=== PATIENT | female | born 1960 | race Caucasian/White ===

== ENCOUNTER 2022-07-27 12:21 | Emergency (ER) | payer OTHER, SELFPAY ==
[2022-07-27 12:44] VITALS: BP 137/81; PULSE 98; RESP 20; TEMP 36.1; O2SAT 96
--- NOTE | 2022-07-27 13:04 | ED.ANIMALBIT ---
HPI - Animal Bite General Chief Complaint: Animal Bite Stated Complaint: Dog Bite Lt Side of Face Time Seen by Provider: 07/27/22 13:00 Source: patient Mode of arrival: ambulatory Limitations: no limitations History of Present Illness HPI narrative: [age] year old female presented for complaint of dog bite to the left face and neck 3 days ago. She states she interfered with her dogs and one dog bit her face. Bleeding is controlled. Sites are open to air without any drainage. Endorses tenderness to the sites. She would like tetanus updated. dog up-to-date on vaccinations. Related Data Allergies Allergy/AdvReac Type Severity Reaction Status Date / Time Penicillins AdvReac Mild Hives Verified 07/27/22 13:03 Sulfa (Sulfonamide AdvReac Mild Hives Verified 07/27/22 13:02 Antibiotics) Review of Systems Review of Systems: CONSTITUTIONAL: Denies body aches, fever, chills, or sweats. EYES: Denies visual changes, redness, or discharge. ENT: Denies rhinorrhea, congestion CARDIOVASCULAR: Denies chest pain, palpitations, or edema. RESPIRATORY: Denies cough or dyspnea. GASTROINTESTINAL: Denies abdominal pain, nausea, vomiting, or diarrhea. SKIN: per HPI MUSCULOSKELETAL: Denies back pain, joint pain, or myalgia. NEUROLOGIC: Denies headache, numbness, tingling, or weakness. PMFSH Comments At time of signature, I have reviewed and agree with nursing past medical, surgical, social and family history unless otherwise noted. Please see nursing chart for further information. There is no relevant family history pertinent to the presenting complaint Exam Narrative: GENERAL: Well-appearing EYES: conjunctivae clear, and EOMI. ENT: Mucous membranes moist. Oropharynx without edema, erythema or lesions. NECK: Supple. No lymphadenopathy CHEST: Clear to auscultation. HEART: Regular rate and rhythm. SKIN: Warm, dry. left samaritan and preauricular area with scattered abrasions and approx 2mm diameter open area, 3mm open area to left neck distal to ear lob with mild surrounding erythema, sites are tender with mild swelling; no active drainage/bleeding, no fluctuance or induration NEURO: Alert and oriented x3. Course Course Emergency Course: Patient is aware of diagnosis, understands and agrees to treatment plan. Anticipatory guidance given. Patient agrees to follow-up as directed and is aware of reasons to seek care at the emergency department. Portions of this record may have been created with voice recognition software Level of Care: Express Care Visit Vital Signs Vital signs: Vital Signs Temperature 96.9 F L 07/27/22 12:44 Pulse Rate 98 07/27/22 12:44 Respiratory Rate 20 07/27/22 12:44 Blood Pressure 137/81 07/27/22 12:44 Pulse Oximetry 96 07/27/22 12:44 Oxygen Delivery Room Air 07/27/22 12:44 Temperature 96.9 F L 07/27/22 12:44 Pulse Rate 98 07/27/22 12:44 Respiratory Rate 20 07/27/22 12:44 Blood Pressure 137/81 07/27/22 12:44 Pulse Oximetry 96 07/27/22 12:44 Oxygen Delivery Room Air 07/27/22 12:44 Reviewed MDM - Animal Bite MDM Narrative Medical decision making narrative: Animal bite occurred 3 days ago. Sites are clean. PCN allergy. Will send Rx doxy and metronidazole. Advised supportive measures and signs/symptoms to go to the ER. Pt is appropriate for outpt treatment and f/u. Differential Diagnosis Differential diagnosis: Likely dog bite Discharge Plan Discharge Clinical Impression: Dog bite Patient Disposition: Home, Self-Care Condition: Stable Instructions: Antibiotic Form, Animal Bite (ED) Additional Instructions: Keep the area clean and dry - cleanse with warm water and mild soap and allow to fully dry. Ok to apply neosporin to the site Keep it open to air (no bandages) Take antibiotic as directed Watch for worsening symptoms including pain, redness, swelling, streaking, pus/drainage, fever. Go to the ER with any of these symptoms or
[2022-07-27] MEDS: TETANUS,DIPHTHERIA,AC PERTUSSIS ADULT (0.5 ML) BOOSTRIX IM (13:11)
== END 2022-07-27 13:12 | disposition home or self-care (01) ==
PROVIDERS: Emergency Provider Nurse Practitioner Family; PCP Family Medicine
DX: S01.85XA Open bite of other part of head, initial encounter (principal); S11.95XA Open bite of unspecified part of neck, initial encounter; W54.0XXA Bitten by dog, initial encounter; Z23 Encounter for immunization; E78.00 Pure hypercholesterolemia, unspecified; K21.9 Gastro-esophageal reflux disease without esophagitis; Z85.3 Personal history of malignant neoplasm of breast; Z90.11 Acquired absence of right breast and nipple
CPT/HCPCS: 90471; 90715; 99213; G0463

== ENCOUNTER 2022-12-05 13:59 | Emergency (ER) | payer OTHER, SELFPAY ==
--- NOTE | ~2022-12-05 | CT_ITS ---
EXAMINATION: CT facial bones wo con DATE: 12/05/2022 15:31 INDICATION: Dog bite to face. TECHNIQUE: Computed tomography (CT) of the facial bones and maxillofacial region was performed withou t intravenous contrast. Automated exposure control and iterative reconstruction technique were employ ed. The dose-length product was 392.44 mGy-cm. COMPARISON: None. FINDINGS: There is fat stranding in the right cheek and lower face with foci of soft tissue gas and l acerations. No radiopaque foreign body. No fracture. There is moderate cervical spondylosis. IMPRESSION: 1. Right face lacerations and inflammation. No fracture or radiopaque foreign body. Reviewed, dictated and finalized at location A. IMPRESSION: 1. Right face lacerations and inflammation. No fracture or radiopaque foreign b lawrence.
[2022-12-05 14:02] VITALS: BP 151/88; PULSE 119; RESP 20; TEMP 36.2; O2SAT 100
--- NOTE | 2022-12-05 15:29 | ED.ANIMALBIT ---
HPI - Animal Bite General Chief Complaint: Animal Bite <Jace Engel PA-C - Last Filed: 12/05/22 18:46> Stated Complaint: dog bite <Jace Engel PA-C - Last Filed: 12/05/22 18:46> Time Seen by Provider: 12/05/22 14:57 <Jace Engel PA-C - Last Filed: 12/05/22 18:46> Source: patient <DAIN Collins Last Filed: 12/05/22 18:46> Mode of arrival: ambulatory <DAIN Collins Last Filed: 12/05/22 18:46> Limitations: no limitations <DAIN Collins Last Filed: 12/05/22 18:46> History of Present Illness HPI narrative: This is a 62-year-old female presents the ED with chief complaint of a dog bite occurring at about 1300 today. She states that she was locked out of her house so she went to her neighbor's yard and the neighbors pitbull attacked her. The dog is not very well-known to the patient. She is unsure about dog vaccination status. She states that the dog jumped up and bit her in the face on the right side. She now reports pain and lacerations to the right side of the face. Otherwise no complaints or further site of injury. Tetanus updated last year <Jace Engel PA-C - Last Filed: 12/05/22 18:46> Related Data Home Medications: Home Medications Medication Instructions Recorded Confirmed atorvastatin 10 mg tablet 10 mg PO DAILY 07/27/22 07/27/22 duloxetine 60 mg capsule,delayed 60 mg PO BID 07/27/22 07/27/22 release pantoprazole 40 mg tablet,delayed 40 mg PO DAILY 07/27/22 07/27/22 release <DAIN Collins Last Filed: 12/05/22 18:46> Allergies/Adverse Reactions: Allergies Allergy/AdvReac Type Severity Reaction Status Date / Time Penicillins AdvReac Mild Hives Verified 12/05/22 17:25 Sulfa (Sulfonamide AdvReac Mild Hives Verified 12/05/22 17:25 Antibiotics) <Jace Engel PA-C - Last Filed: 12/05/22 18:46> Review of Systems Review of Systems: CONSTITUTIONAL: Denies fever, chills, or sweats. EYES: Denies visual changes, redness, or discharge. ENT: Denies rhinorrhea, congestion, sore throat, or otalgia. CARDIOVASCULAR: Denies chest pain, palpitations, or edema. RESPIRATORY: Denies cough or dyspnea. GASTROINTESTINAL: Denies abdominal pain, nausea, vomiting, or diarrhea. GENITOURINARY: Denies dysuria or hematuria. SKIN: Endorses lacerations. Denies rash or itching. MUSCULOSKELETAL: Denies back pain, joint pain, or myalgia. NEUROLOGIC: Denies headache, numbness, dizziness, or weakness. PSYCHIATRIC: Denies anxiety or depression. <Jace Engel PA-C - Last Filed: 12/05/22 18:46> Exam Narrative: GENERAL: Well-appearing, well-nourished, and in no acute distress. HEAD: Normocephalic, atraumatic. EYES: PERRLA and EOMI. ENT: Nares clear, no rhinorrhea or epistaxis. Mucous membranes moist. Oropharynx without tonsillar hypertrophy exudate or other lesions. NECK: Supple. No adenopathy or masses. CHEST: No respiratory distress. Clear to auscultation. No wheezes rales or rhonchi HEART: Regular rate and rhythm. No murmur heard. Normal peripheral pulses. ABDOMEN: Soft, nontender, nondistended, normal active bowel sounds. EXTREMITIES: Normal range of motion. No edema. SKIN: Several lacerations noted to the right side of the face and right-sided submandible. Lacerations to the right cheek are crusted over and healing. Laceration to the bottom of the chin is deeper and still open. No overt foreign bodies noted. No ecchymosis present. Patient warm, dry, no rash. NEURO: Alert and oriented x3. No focal deficits. PSYCH: Normal mood and affect. <Jace Engel PA-C - Last Filed: 12/05/22 18:46> Course [employer]/PA Physician Supervision For this patient encounter, I reviewed the [employer] or PA documentation, treatment plan, and medical decision making; and I had [id number] time with this patient. 2-year-old female presenting to the ED for evaluation after a dog bite to the right face. The dog is under observation and is a neighbors d
[2022-12-05 17:23] VITALS: BP 153/89; PULSE 87; RESP 18; O2SAT 96
[2022-12-05] MEDS: DOXYCYCLINE 100 MG/NS 100 ML 100 MG/100 ML BAG IVPB (17:24)
[2022-12-05] MEDS: MORPHINE SULFATE (*CRX) 2 MG/ML INJ IV PUSH (17:24)
[2022-12-05] MEDS: KETOROLAC 30 MG/ML VIAL (*BKC) IV PUSH (17:24)
== END 2022-12-05 18:33 | disposition home or self-care (01) ==
PROVIDERS: Emergency Provider Physician Assistant; PCP Family Medicine
DX: S01.85XA Open bite of other part of head, initial encounter (principal); W54.0XXA Bitten by dog, initial encounter; Y92.007 Garden or yard of unspecified non-institutional (private) residence as the place of occurrence of the external cause
CPT/HCPCS: 12013; 70486; 96365; 96375; 99284; J1885; J2270

== ENCOUNTER 2023-05-30 16:43 | Emergency (ER) | payer MEDICARE, SELFPAY ==
[2023-05-30 16:58] VITALS: BP 157/75; PULSE 83; RESP 18; TEMP 36.2; O2SAT 96
--- NOTE | 2023-05-30 17:00 | ED.URI ---
HPI - URI/Sore Throat General Chief Complaint: Upper Respiratory Infection Stated Complaint: headache,nasal drainage Time Seen by Provider: 05/30/23 17:17 Source: patient and RN notes reviewed Mode of arrival: ambulatory Limitations: no limitations History of Present Illness HPI Narrative: 63-year-old female presents with concern for 5 day history of headache, sinus drainage, cough, body aches. She reports she has been taking [id number] medications without relief. MD elicited complaint: rhinorrhea and nasal congestion Related Data Home Medications Medication Instructions Recorded Confirmed atorvastatin 10 mg tablet 10 mg PO DAILY 07/27/22 07/27/22 duloxetine 60 mg capsule,delayed 60 mg PO BID 07/27/22 07/27/22 release pantoprazole 40 mg tablet,delayed 40 mg PO DAILY 07/27/22 07/27/22 release Allergies Allergy/AdvReac Type Severity Reaction Status Date / Time Penicillins AdvReac Mild Hives Verified 12/05/22 17:25 Sulfa (Sulfonamide AdvReac Mild Hives Verified 12/05/22 17:25 Antibiotics) Review of Systems Review of Systems: CONSTITUTIONAL: Denies chills, sweats, or fever. EYES: Denies visual changes, redness, or discharge. ENT: Reports rhinorrhea, congestion, sinus pain CARDIOVASCULAR: Denies chest pain, palpitations, or edema. RESPIRATORY: Reports cough. Denies dyspnea. GASTROINTESTINAL: Denies abdominal pain, nausea, vomiting, diarrhea SKIN: Denies rash or itching. MUSCULOSKELETAL: Denies myalgia. NEUROLOGIC: Reports headache. All systems reviewed & are unremarkable except as noted in HPI and below PMFSH Comments At time of signature, agree with nursing past medical, surgical, social and family history. There is no relevant family history pertinent to the presenting complaint Exam Narrative: GENERAL: Well-appearing, well-nourished, and in no acute distress. HEAD: Normocephalic EYES: PERRLA, conjunctivae clear ENT: Nares clear, turbinates edematous and erythematous, clear discharge. Mucous membranes moist. TM pearly rodriguez with dull light reflex bilaterally; no tragal tenderness. Oropharynx not erythematous without lesions. Tonsils not enlarged and without exudate, no drooling, no hoarseness, no trismus, uvula midline. NECK: Supple. No lymphadenopathy CHEST: Clear to auscultation, breath sounds equal. No wheezing, rhonchi, rales, or stridor. No respiratory distress, speaks in full sentences. HEART: Regular rate and rhythm. No murmur heard. SKIN: Warm, dry, no rash. NEURO: Alert and oriented x3. PSYCH: Normal mood and affect Course Course Emergency Course: Patient is aware of diagnosis, understands and agrees to treatment plan. Anticipatory guidance given. Patient agrees to follow-up as directed and is aware of reasons to seek care at the emergency department. Portions of this record may have been created with voice recognition software Level of Care: Express Care Visit Vital Signs Vital signs: Vital Signs Temperature 97.2 F L 05/30/23 16:58 Pulse Rate 83 05/30/23 16:58 Respiratory Rate 18 05/30/23 16:58 Blood Pressure 157/75 H 05/30/23 16:58 Pulse Oximetry 96 05/30/23 16:58 Oxygen Delivery Room Air 05/30/23 16:58 Temperature 97.2 F L 05/30/23 16:58 Pulse Rate 83 05/30/23 16:58 Respiratory Rate 18 05/30/23 16:58 Blood Pressure 157/75 H 05/30/23 16:58 Pulse Oximetry 96 05/30/23 16:58 Oxygen Delivery Room Air 05/30/23 16:58 Reviewed. MDM - URI/Sore Throat MDM Narrative Medical decision making narrative: Differential diagnosis considered: Berkowitz virus, strep pharyngitis, allergic rhinitis, upper respiratory tract infection, sinusitis, rhinosinusitis, nasopharyngitis. viral pharyngitis, otitis media, otitis externa, pneumonia, bronchitis, viral cough syndrome, viral syndrome, and influenza. Exam findings show no acute concerns or changes; patient is non-toxic appearing and is in no distress. Patient is appropriate for outpatient treatmen
== END 2023-05-30 17:28 | disposition home or self-care (01) ==
PROVIDERS: Emergency Provider Nurse Practitioner; PCP Family Medicine
DX: J06.9 Acute upper respiratory infection, unspecified (principal); Z20.822 Contact with and (suspected) exposure to COVID-19
CPT/HCPCS: 87081; 87426; 87804; 87880; 99213; C9803; G0463

== ENCOUNTER 2024-07-07 08:40 | Emergency (ER) | payer MEDICARE, SELFPAY ==
--- NOTE | 2024-07-07 08:50 | ED.SKABFB ---
HPI - Skin/Abscess/Foreign Bdy General Chief complaint: Animal Bite Stated complaint: cat bite Time Seen by Provider: 07/07/24 10:15 Source: patient and RN notes reviewed Mode of arrival: ambulatory Limitations: dementia History of Present Illness HPI narrative: 64-year-old female presents with concern for a cat bite. Reports 2 days ago she was bitten on her right hand by her cat. Reports it started becoming red and swollen yesterday. She denies drainage from the area. She denies fever, body aches, chills, sweats. She denies any decreased sensation, strength, range of motion to the hand or digits. MD complaint: other (Redness) Related Data Home Medications Medication Instructions Recorded Confirmed atorvastatin 10 mg tablet 10 mg PO DAILY 07/27/22 07/07/24 duloxetine 60 mg capsule,delayed 60 mg PO BID 07/27/22 07/07/24 release pantoprazole 40 mg tablet,delayed 40 mg PO DAILY 07/27/22 07/07/24 release Allergies Allergy/AdvReac Type Severity Reaction Status Date / Time Penicillins AdvReac Mild Hives Verified 07/07/24 09:34 Sulfa (Sulfonamide AdvReac Mild Hives Verified 07/07/24 09:34 Antibiotics) Review of Systems Review of Systems: CONSTITUTIONAL: Denies malaise, chills, sweats, or fever. EYES: Denies redness, or discharge. ENT: Denies rhinorrhea, congestion, swollen lips, swollen tongue CARDIOVASCULAR: Denies chest pain, palpitations, or edema. RESPIRATORY: Denies cough or dyspnea. GASTROINTESTINAL: Denies abdominal pain, nausea, vomiting SKIN: Reports redness, swelling surrounding a cat bite to the right hand. Denies purulent drainage, vesicles, bullae, numbness, pain beyond proportion MUSCULOSKELETAL: Denies joint pain or myalgia. NEUROLOGIC: Denies headache. All systems reviewed & are unremarkable except as noted in HPI and below PMFSH Comments At time of signature, agree with nursing past medical, surgical, social and family history. There is no relevant family history pertinent to the presenting complaint Exam Narrative: GENERAL: Well-appearing, well-nourished, and in no acute distress. HEAD: Normocephalic, atraumatic. EYES: PERRLA, conjunctivae clear ENT: Mucous membranes moist. NECK: Supple. No lymphadenopathy CHEST: Clear to auscultation. No respiratory distress. HEART: Regular rate and rhythm. SKIN: Warm, dry. Erythema, induration, tenderness, warmth with sharp margins noted to the dorsal right hand surrounding a scab puncture wound. No vesicles, bullae, necrosis, ecchymosis, crepitus noted. MUSC: Right hand and digits of hand have normal strength and sensation. 5/5 strength with digit flexion, extension. Range of motion normal. No clubbing, cyanosis, or edema noted. No tenderness. Normal digital cascade with flexion of fingers, median, ulnar and radial nerve intact. Normal sensation of each side of finger. Can perform 'okay' sign, 'cross over finger test of index and middle fingers' and 'thumbs up' sign. No scissoring. Normal thumb opposition. Good capillary refill and radial pulse. Distal capillary refill less than 3 seconds. NEURO: Alert and oriented x3. PSYCH: Normal mood and affect HENMT: Mouth: Yes Abnormal salivary glands and ducts Course Course Emergency Course: Patient is aware of diagnosis, understands and agrees to treatment plan. Anticipatory guidance given. Patient agrees to follow-up as directed and is aware of reasons to seek care at the emergency department. Portions of this record may have been created with voice recognition software Level of Care: Express Care Visit Vital Signs Vital signs: Reviewed. MDM - Skin/Abscess/Foreign Bdy MDM Narrative Medical decision making narrative: I evaluated this in the express care. History is obtained from patient who is an independent historian and physical exam was performed.? Available medical records were reviewed. ? Exam findings and relevant testing show no acute concerns or changes; patient is non-toxic appearing and is in no distress. No risk factors or findings concerning for epidural abscess, diskitis, vertebral osteomyelitis, cord compression, cauda equina, vertebral fracture or bone malignancy, AAA, or pyelonephritis. Patient instructed to consider further imaging and workup through their primary care physician as an outpatient if symptoms persist. Does not appear at this time to be erythema multiforme, bullous, SJS, TEN; no evidence at this time to suggest RMSF, NSTI, endocarditis or Lyme disease; patient looks well, nontoxic and is tolerating oral intake; no neurologic signs or symptoms; no headache, photophobia or neck pain; afebrile.? Patient does not have history of of penetrating trauma, laceration, blunt trauma, recent surgery, immunosuppression, malignancy, obesity, alcoholism, corticosteroid use.? Discussed the importance of follow-up, patient agrees; question, cellulitis versus necrotizing soft tissue infection versus abscess.?? Patient is appropriate for outpatient treatment and follow-up. Critical Care Time Critical Care Time Critical Care Time: No Discharge Plan Discharge Clinical Impression: Cat bite Patient Disposition: Home, Self-Care Condition: Stable Instructions: Antibiotic Form, Animal Bite (ED) Additional Instructions: Please follow up with your Primary Care Doctor within 48-72 hours - call for an appointment. Rest and elevate affected area; apply moist heat 3-4 times daily for 10-15 minutes. Take Motrin 600mg every 8 hours with food for pain. Please take Antibiotics as directed. If you experience any worsening redness, swelling, streaking (red lines), fever or chills please go to the ER Prescriptions: New doxycycline monohydrate 100 mg tablet 100 mg PO BID 7 Days Qty: 14 0RF No Action atorvastatin 10 mg tablet 10 mg PO DAILY pantoprazole 40 mg tablet,delayed release (DR/EC) 40 mg PO DAILY duloxetine 60 mg capsule,delayed release(DR/EC) 60 mg PO BID Follow-up/Referrals: Sukhwinder,MD Anibal [Primary Care Provider] - Time of Disposition: 10:31
[2024-07-07 09:01] VITALS: BP 125/83; PULSE 97; RESP 18; TEMP 36.8; O2SAT 95
== END 2024-07-07 11:05 | disposition home or self-care (01) ==
PROVIDERS: Emergency Provider Nurse Practitioner; PCP Family Medicine
DX: S61.431A Puncture wound without foreign body of right hand, initial encounter (principal); W55.01XA Bitten by cat, initial encounter; E78.00 Pure hypercholesterolemia, unspecified; K21.9 Gastro-esophageal reflux disease without esophagitis; Z85.3 Personal history of malignant neoplasm of breast
CPT/HCPCS: 99213; G0463

== ENCOUNTER 2025-08-28 18:11 | Emergency (ER) | payer MEDICARE, SELFPAY ==
--- OUTSIDE RECORDS SUMMARY | 2024-05-24 09:43 | XMS_ITS | Continuity of Care Document ---
Author Organization 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, [place], [place], [id number], tel:[phone] [place] No Information [address] [facility], [place], [place], [id number], tel:[phone] [facility] No Information 4 Rome Bryan . Referring Provider: Anibal Pretty, [address], [place], [address]. tel:[phone] [place] [address] [address], [place], [place], [id number], tel:[phone] [facility] No Information 2- 4 Rome Bryan . Referring Provider: Anibal Pretty, [address], [place], [address]. tel:[phone] [address] [facility], [address], [place], [place], [id number], tel:[phone] [place] No Information Dec-0 4 Rome Bryan . Referring Provider: Anibal Pretty, [address], [place], [address]. tel:[phone] [facility], [address], [place], [place], [id number], tel:[phone] [facility] No Information Apr-0 - 4 Rome Bryan . Referring Provider: Anibal Pretty, [address], [place], [address]. tel:[phone] Family History Family Member Type Diagnosis Age At Onset No Information Payers Payer name Insurance type Covered alliance party ID Authorfrederick eduardo(s) [employer] Medicare Replacement CI [id number] Social History Type Description Quantity Date Captured Comments Sex Female Smoking Status No Information Chief Complaint And Reason For Visit No Information Reason For Referral Reason For Referral No Information History Of Present Illness Encounter Date Complaint History Of Prese nt Illness No Information Functional Status Date Functional Assessmen t No Information Instructions Date Instruction Additional Infor mation No Information Assessments Type Assessment Date No Information Patient Care Teams Name Effective Dates (start - stop) Status Members No Information
--- OUTSIDE RECORDS SUMMARY | 2025-06-20 04:50 | XMS_ITS | Continuity of Care Document ---
Author Organization [facility] Address [address] [place] [address] Phone Care Team Providers Care Work Counselor Name Role Phone Marva Singh Unavailable Unavailable Allergies, Adverse Reactions, Alerts Substance Reaction Status Criticality Sulfa (Sulfonamide Antibiotics) Active No Information Medications Medication Instructions Dosage Effective Dates (start - stop) Status Comments duloxetine 60 mg capsule,delayed release TAKE 2 CAPSULES BY MOUTH DAILY - Active pantoprazole 40 mg tablet,delayed release TAKE 1 TABLET BY MOUTH EVERY DAY IN THE MORNING - Active azithromycin 250 mg tablet take 2 tablet by oral route every day for 1 day then 1 tablet (250 mg) by oral route once daily for 4 days 500 MG - No Longer Active prednisone 20 mg tablet take 1 tablet by oral route every day for 5 days 20 MG - No Longer Active bupropion HCl XL 150 mg 24 hr tablet, extended release No Longer Active calcium 600 mg (as carbonate)-vitamin D3 10 mcg (400 unit) tablet TAKE 1 TABLET BY MOUTH TWICE DAILY DIRECTED No Longer Active bupropion HCl XL 300 mg 24 hr tablet, extended release TAKE 1 TABLET BY MOUTH EVERY DAY No Longer Active atorvastatin 20 mg tablet No Longer Active trazodone 50 mg tablet No Longer Active hydroxyzine HCl 25 mg tablet TAKE 1 TABLET BY MOUTH EVERY DAY NEEDED FOR SLEEP No Longer Active gabapentin 300 mg capsule TAKE 1 CAPSULE BY MOUTH EVERY 8 HOURS DIRECTED - No Longer Active clindamycin HCl 300 mg capsule TAKE 1 CAPSULE BY MOUTH EVERY 8 HOURS FOR 7 DAYS - No Longer Active doxycycline monohydrate 100 mg tablet TAKE 1 TABLET BY MOUTH TWICE DAILY FOR 7 DAYS - No Longer Active Procedures Procedure Date Offic/outpt E&m [facility] Advance Directives Directive Yes / No Effective Date File Name No Information Encounters Encounter Description Practice Location Reason(s) For Visit Diagnoses Date Provider Providers Copied on Encounter Offic/outpt E&m [facility], [address] [place] [address], [place], [place], [id number], tel:[phone] [facility] sinus symptoms (chief complaint) Sinus congestionSinus headache Faisal Durham. [address], [place] [address], [place], [address], [place]. tel:[phone] Referring Provider: Marva EUCEDA, [address] [place] [address], [place], [address]. tel:[phone] Family History Family Member Type Diagnosis Age At Onset No Information Payers Payer name Insurance type Covered constitution party ID Authoriza corneljessie(s) Allyson WATSON [id number] Social History Type Description Quantity Date Captured Comments Alcohol Use Details wine Caffeine Use Details Unknown Tobacco Use Status Current non-smoker Smoking Status Never smoker Non-Smoking Tobacco Use Details : No Details Available : No Details Available Sex Female Vital Signs Date / Time: Height Weight BMI Pulse Rate Blood Pressure Temperature Respiratory Rate Body Surface Area Head Circumference Head Circ. Percentile Wt./Nader. Percentile BMI percentile Pulse Ox Inhaled Ox 10:58 AM 61.00 in 76.204 kg (168.00 lbs) 31.7 4 kg/m eter (2) 114 /min 119/75 mm[Hg] 98.00 F 20 /min 96 % Chief Complaint And Reason For Visit From encounter dated '06/20/2025 10:50'. sinus symptoms (chief complaint). Description: The patient presents with symptoms that began 6 daysago. The sinus symptoms have worsened. Today the patient complains of nasal congestion and sinus pressure. The symptoms are felt to be related to recent URI. Denies relieving factors. Associated symptoms include headache, nasal congestion and sinus pressure. Pertinent negatives include cough, fatigue, fever, nasal drainage and visual disturbances. Reason For Referral Reason For Referral No Information History Of Present Illness Encounter Date Complaint History Of Prese nt Illness sinus symptoms The patient pres ents with symptoms that began 6 days ago. The sinus symptoms have worsened. Today the patient complains of nasal congestion and sinus pressure. The symptoms are felt to be related to recent URI. Denies relieving factors. Associated symptoms include headache, nasal congestion and sinus pressure. Pertinent negatives include cough, fatigue, fever, nasal drainage and visual disturbances. Functional Status Date Functional Assessmen t No Information Instructions Date Instruction Additional Infor mation Please fill your pre scription and take the medication as directed. May supplement treatment with use of warm compresses to sinus area(s) and/or exposure to steam from hot shower or bath. Consider using a humidifier or vaporizer at the bedside. Use caution if using a vaporizer around small children as steam can cause severe mooney. Related to Sinus congestion Assessments Type Assessment Date assessment Sinus congestion assessment Sinus headache Mental Status Date Cognitive Assessment Orientation - [place] ed to time, place, person, situation. Patient Care Teams Name Effective Dates (start - stop) Status Members No Information
--- OUTSIDE RECORDS SUMMARY | 2025-06-20 04:50 | XMS_ITS | Continuity of Care Document ---
Author Organization [facility] Address [address] [place] [address] Phone Care Team Providers Care Electro Mechanical Designer Name Role Phone Marva Singh Unavailable Unavailable [...] Longer Active Procedures Procedure Date Offic/outpt E&m [facility] Advance Directives Directive Yes / No Effective Date File Name No Information Encounters Encounter Description Practice Location Reason(s) For Visit Diagnoses Date Provider Providers Copied on Encounter Offic/outpt E&m [facility], [address] [place] [address], [place], [place], [id number], tel:[phone] [facility] sinus symptoms (chief complaint) Sinus congestionSinus headache Faisal Durham. [address], [place] [address], [place], [address], [place]. tel:[phone] Referring Provider: Marva EUCEDA, [address] [place] [address], [place], [address]. tel:[phone] Family History Family Member Type Diagnosis Age At Onset No Information Payers Payer name Insurance type Covered green party ID Authoriza corneljessie(s) Allyson WATSON [id number] Social History Type Description Quantity Date Captured [...] Mental Status Date Cognitive Assessment Orientation - [place] ed to time, place, person, situation. Patient Care Teams Name Effective Dates (start - stop) Status Members No Information
--- OUTSIDE RECORDS SUMMARY | 2025-08-28 18:14 | XMS_ITS | Clinical Summary ---
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 Name Role Phone Yareli Carty MD Primary Care Provider [phone] Allergies Active Allergy Reactions Criticality Noted Date Comments Penicillins Unknown,Swelling Medium 09/17/2022 Sulfa (Sulfonamide Antibiotics) Hives Medium 05/2023 Medications calcium carbonate-vitami n D3 (CALTRATE 600 + D) 1500 mg (600 mg elemental) -400 units per tablet Take 1 tablet by mouth 2 (two) times a day [address] (CYMBALTA) 60 mg capsule Take 2 capsules (120 mg total) by mouth daily 2 Active aspirin 81 mg enteric coated tablet Take 1 tablet (81 mg total) by mouth daily Active cetirizine (ZyrTEC) 10 mg tablet Take 1 tablet (10 mg total) by mouth daily Active pantoprazole DR (PROTONIX) 40 mg EC tablet Take 1 tablet (40 mg total) by mouth every morning Active clobetasoL (TEMOVATE) 0.05 % cream Apply topically 2 (two) times a day Active ondansetron (ZOFRAN) 4 mg tabletIndication s:Nausea and vomiting, unspecified vomiting type,Colon cancer screening Take 1 tablet (4 mg) total 30 minutes before starting colonoscopy prep. Use the 2nd tablet as needed for nausea and vomiting. 2 tablet 5 Active atorvastatin (LIPITOR) 20 mg tablet Take 1 tablet (20 mg total) by mouth nightly at bedtime 90 tablet 5 Active Active Problems Problem Noted Date Diagnosed Date Breast cancer 06/29/2025 Assessment & Plan (07/01/2025 7:38 AM CDT): Chronic, stable. Dx 2012 fa mare oral chemotherapy medication. Underwent right breast mastectomy and reconstruction surgery afterwards. In remission since undergoing treatment. Orders: Ambulatory referral to Breast Health Oncology; Future Colon cancer screening 06/29/2025 Assessment & Plan (07/01/2025 7:38 AM CDT): Screening due Orders: Ambulatory referral to Gastroenterology; Future Vitamin D deficiency 10/02/2023 Hyperlipidemia 07/31/2022 Encounters Date Type Department Care Team Description 07/06/2025 9:51 AM CDT Anesthesia Event [address] [address] Cyrus Hunter MD [facility] 07/06/2025 9:30 AM CDT - 07/06/2025 10:00 AM CDT Surgery [address] [address] Cyrus Hunter MD COLONOSCOPY 07/06/2025 8:36 AM CDT - 07/06/2025 11:00 AM CDT Hospital Encounter [address] [address] Cyrus Hunter MD Discharge Disposition: Discharge to home or self care 06/30/2025 Results Follow-Up [facility] Primary Care at [address] [phone] Yareli Carty MD Lipid panel, Comprehensive metabolic panel, Hemoglobin A1c, Additional followed-up results: 5 06/29/2025 12:45 PM CDT Lab [address] [address] Obesity (BMI 30-39.9); Screening for diabetes mellitus; Need for hepatitis C screening test 06/29/2025 11:30 AM CDT Office Visit [facility] Primary Care at [address] [phone] Yareli Carty MD Keratosis (Primary Dx); History of nausea and vomiting; Malignant neoplasm of lower-inner quadrant of right female breast, unspecified estrogen receptor status (HCC); Colon cancer screening; Obesity (BMI 30-39.9); Screening for diabetes mellitus; Need for hepatitis C screening test 06/29/2025 Orders Only [facility] Gastroenterology at [address] [phone] Cyrus Hunter MD Colon cancer screening (Primary Dx); Nausea and vomiting, unspecified vomiting type from Last 3 Months Immunizations Immunization Administration Dates Next Due Hep B, Unspecified 11/07/1993,06/09/1993, 993 Influenza, Quad, Adjuvantate d, Intramuscular 08/18/2023 Influenza, Quadrivalent, Susana l Culture-based MDCK, Preservative Free, Antibiotic Free, Intramuscular 07/04/2022 Influenza, Quadrivalent, Spl it, Intramuscular 08/18/2021,08/25/2020 Influenza, Trivalent, IM (MDV) 07/24/2012 Influenza, Trivalent, Preser vative Free, Intramuscular 06/08/2019 Influenza, Unspecified 06/09/2022 Pneumococcal Polysaccharide PPV23 08/14/2022 Td, adsorbed 09/18/2014 Tdap 07/27/2022 Surgical History Surgery Date Site/Laterality Comments TUBAL LIGATION MASTECTOMY Right BREAST RECONSTRUCTION KNEE SURGERY SECTION N/A Medical History Medical History Date Comments Hyperlipidemia GERD (gastroesophageal reflux disease) Anxiety Depression Cancer (HCC) Family History Medical History Relation Name Comments COPD Father Prostate cancer Father Relation Name Status Comments Father Mother Social History Tobacco Use Types Packs/Day Years Used Date Smoking Tobacco: Never Smokeless Tobacco: Never Tobacco Cessation:Counseling Given: Not Answered Alcohol Use Standard Drinks/Week Comments Yes 0 (1 standard drink = 0.6 oz pur e alcohol) PHQ-2 Answer Date Recorded PHQ-2 Total Score (If total score is 3 or more points, staff should administer the PHQ-9) 0 06/29/2025 AUDIT-C Answer Date Recorded Q1: How often do you have a drink containing alc ohol? Monthly or less 07/06/2025 Q2: How many drinks containi ng alcohol do you have on a typical day when you are drinking? 1 or 2 07/06/2025 Q3: How often do you have si x or more drinks on one occasion? Never 07/06/2025 Personal Safety Answer Date Recorded Have you ever been in or are you currently in a harmful physical or emotional relationship or is someone making you feel afraid or unsafe? Denies 07/06/2025 Comments No Sex and Gender Information Value Date Recorded Sex Assigned at Not on file Legal Sex Female 3:56 PM CDT Gender Identity Not on file Sexual Orientation Not on file Last Filed Vital Signs Vital Sign Reading Time Taken Comments Blood Pressure 131/74 07/06/2025 10:40 AM CDT Pulse 77 07/06/2025 10:40 AM CDT Temperature 36.1 C (97 F) 07/06/2025 10:18 AM CDT Respiratory Rate 14 07/06/2025 10:40 AM CDT Oxygen Saturation 96% 07/06/2025 10:40 AM CDT Inhaled Oxygen Concentration - - Weight 79.4 kg (175 lb) 07/06/2025 8:51 AM CDT Height 154.9 cm (5' 1) 06/29/2025 11:45 AM CDT Body Mass Index 33.07 06/29/2025 11:45 AM CDT Plan of Treatment Health Maintenance Due Date Last Done Comments Osteoporosis Screening-Bone Density Scan 1960 Well Visit 65+ 2023 Breast Cancer Screening-Mammogram 02/24/2026 02/24/2025, 02/24/2025, 01/23/2024 Influenza Vaccine (#1) 2026 , 07/04/2022, 06/09/2022, Additional history exists Postponed from 05/10/2025 (Patient declined, but will receive in the future) Covid-19 Vaccine ( season) 2026 08/18/2023, 02/23/2021, 01/26/2021 Postponed from 05/10/2025 (Patient declined, but will receive in the future) Depression Screening 06/29/2026 06/29/2025 Fall Risk Assessment 06/29/2026 06/29/2025 Pneumococcal vaccine 65+ (2 of 2 - PCV) 06/29/2026 08/14/2022 Postponed from 08/14/2023 (Patient declined, but will receive in the future) Zoster Vaccine (1 of 2) 06/29/2026 Post poned from 2008 (Patient declined, but will receive in the future) DTaP/Tdap/Td Vaccine (2 - Td or Tdap) 07/27/2032 07/27/2022, 09/18/2014 Colon Cancer Screening-Colonoscopy 07/06/2035 07/06/2025 Hepatitis B Screening Completed 11/07/1993 , 06/09/1993, 05/09/1993 Hepatitis C Screening Completed 06/29/2025 Medical Devices Implanted Type Area Study Assistant Device Identifier Shelf Expiration Date Model / Serial / Lot Breast Breast Right: Breast Procedures Procedure Name Priority Date/Time Associated Diagnosis Comments COLONOSCOPY 07/06/2025 9:52 AM CDT Colon cancer screening COLONOSCOPY 07/06/2025 9:40 AM CDT EGFR Routine 06/29/2025 1:03 PM CDT Obesity (BMI 30-39.9) DIFFERENTIAL AUTO Routine 06/29/2025 1:0 3 PM CDT Obesity (BMI 30-39.9) THYROID FUNCTION CASCADE Routine 06/29/2025 1:03 PM CDT Obesity (BMI 30-39.9) CBC WITH AUTO DIFFERENTIAL Routine 06/29/2025 1:03 PM CDT Obesity (BMI 30-39.9) HEMOGLOBIN A1C Routine 06/29/2025 1:03 PM CDT Screening for diabetes mellitus COMPREHENSIVE METABOLIC PANEL Routine 06/29/2025 1:03 PM CDT Obesity (BMI 30-39.9) LIPID PANEL Routine 06/29/2025 1:03 PM CDT Obesity (BMI 30-39.9) HEPATITIS C ANTIBODY Routine 06/29/2025 1:03 PM CDT Need for hepatitis C screening test from Last 3 Months Results * Colonoscopy (07/06/2025 9:40 AM CDT) Anatomical Region Laterality Modality Other Narrative Procedure Note Cyrus Hunter MD - 07/06/2025 9:40 AM CDT [facility] Patient Name: Nataliia Eastman Procedure Date: 07/06/2025 9:40 AM Date of : 1960 Admit Type: Outpatient Age: 65 Gender: Female Attending MD: Cyrus Hunter M.D., Room: [facility] PROCEDURE 1 Note Status: Finalized Procedure: Colonoscopy Indications: Screening for colorectal malignant neoplasm Referring MD: Yareli Carty M.D. Providers: Cyrus Hunter M.D. Medicines: Monitored Anesthesia Care Complications: No immediate complications. Estimated blood loss:None. Estimated Blood Loss: Estimated blood loss: none. Procedure: The benefits, risks and alternatives of theprocedure and sedation were discussed and informed consentwas obtained. All questions were answered. Please referto the signed informed consent document in the medical record. The scope was passed under direct vision.The [id number] COLONOSCOPE was introduced through theanus and advanced to the terminal ileum. The colonoscopy was performed without difficulty. The patient tolerated the procedure well. The quality of thebowel preparation was good. A computer-assisted devicewith artificial intelligence ([employer]) designed todetect polyps was used during the exam. Findings: Internal hemorrhoids were found during retroflexion. The hemorrhoids were mild. A few diverticula were found in the sigmoid colon. The exam was otherwise without abnormality. Impression: - Internal hemorrhoids. - Diverticulosis in the sigmoid colon. - The examination was otherwise normal. - No specimens collected. Recommendation: - Repeat colonoscopy in 10 years for screening purposes. - High fiber diet. Cyrus Hunter M.D. Cyrus Hunter M.D. 07/06/2025 10:21:48 AM . Number of Addenda: 0 Note Initiated On: 07/06/2025 9:40 AM Cyrus Hunter MD ENDOSCOPY PROCEDURES Final R esult * (ABNORMAL) eGFR (06/29/2025 1:03 PM CDT) eGFR 59(L) >=60 mL/min/1. 73 m2 Comment: Interpretive Data Reference Interval Normal >/= 90 mL/min/1.73m2 Mildly decreased* 60 - 89 mL/min/1.73m2 Mildly to moderately decreased 45 - 59 mL/min/1.73m2 Moderately to severely decreased 30 - 44 mL/min/1.73m2 Severely decreased 15 - 29 mL/min/1.73m2 Kidney Failure < 15 mL/min/1.73m2 *Relative to young adult level Estimated glomerular filtration rate is determined by the 2020 CKD-EPI equation recommended by the National Kidney Foundation (A Unifying Approach to GFR Estimation: Recommendations of the NKF-ASK Task Force on Reassessing the Inclusion of Race in Diagnosing Kidney Disease, JASN 2020). The CKD-EPI equation should not be used for patients with unstable renal function and has not been validated in children and those over 70. Current interpretive data was last reviewed 2021. Blood 06/29/2025 1:03 PM CDT 06/29/2025 6:16 PM CDT [facility] Payton Carty MD LAB BLOOD ORDERABLES Mary pablo Result [facility] [address] [facility] Department [place] [address] * Differential, auto (06/29/2025 1:03 PM CDT) Pathologist [facility] Neutrophil abs 2.10 1.50 - 6.50 K/cumm Imm gran abs 0.00 0.00 - 0.10 K/cumm [facility] Lymphocyte abs 2.21 0.80 - 3.30 K/cumm [facility] Monocyte abs 0.36 0.20 - 0.80 K/cumm [facility] Eosinophil abs 0.18 0.00 - 0.50 K/cumm [facility] Basophil abs 0.08 0.00 - 0.10 K/cumm [facility] Neutrophil pct 42.6 % [facility] Comment: Interpretive Data Percent cell count reference ranges are not reported, since discordance with absolute values may lead to misinterpretation of CBC data. Current Interpretive Data was last revised on 2017. Imm gran pct 0.0 % [facility] Comment: Interpretive Data Percent cell count reference ranges are not reported, since discordance with absolute values may lead to misinterpretation of CBC data. Current Interpretive Data was last revised on 2017. Lymphocyte pct 44.8 % [facility] Comment: Interpretive Data Percent cell count reference ranges are not reported, since discordance with absolute values may lead to misinterpretation of CBC data. Current Interpretive Data was last revised on 2017. Monocyte pct 7.3 % [facility] Comment: Interpretive Data Percent cell count reference ranges are not reported, since discordance with absolute values may lead to misinterpretation of CBC data. Current Interpretive Data was last revised on 2017. Eosinophil pct 3.7 % [facility] Comment: Interpretive Data Percent cell count reference ranges are not reported, since discordance with absolute values may lead to misinterpretation of CBC data. Current Interpretive Data was last revised on 2017. Basophil pct 1.6 % [facility] Comment: Interpretive Data Percent cell count reference ranges are not reported, since discordance with absolute values may lead to misinterpretation of CBC data. Current Interpretive Data was last revised on 2017. Blood 06/29/2025 1:03 PM CDT 06/29/2025 6:19 PM CDT [facility] Payton Carty MD LAB BLOOD ORDERABLES Mary l Result Performing Organization Address City/[facility] Co de Phone Number [address] [place] [address] * Thyroid Function Emanuel (06/29/2025 1:03 PM CDT) [facility] TSH 1.84 0.30 - 4.20 mcIUnit/mL Blood 06/29/2025 1:03 PM CDT 06/29/2025 6:16 PM CDT Result [facility] Payton Carty MD LAB BLOOD ORDERABLES Mary l Result Performing Organization Address City/[facility] Co de Phone Number [address] [place] [place] [address] * CBC with auto differential (06/29/2025 1:03 PM CDT) [facility] WBC 4.93 3.80 - 9.90 K/cumm Hgb 13.9 11.9 - 15.5 g/dL [facility] Hct 42.7 35.6 - 45.5 % [facility] Plt 246 150 - 400 K/cumm [facility] MPV 10.2 9.1 - 12.3 fL [facility] RBC 4.67 3.90 - 5.20 M/cumm [facility] MCV 91.4 81.3 - 96.4 fL [facility] MCH 29.8 27.1 - 33.3 pg [facility] MCHC 32.6 32.3 - 35.7 g/dL [facility] RDW CV 12.3 11.1 - 14.9 % [facility] RDW SD 40.8 35.7 - 48.1 fL [facility] NRBC abs 0.00 0.00 - 0.01 K/cumm [facility] Blood 06/29/2025 1:03 PM CDT 06/29/2025 6:19 PM CDT Result [facility] Payton Carty MD LAB BLOOD ORDERABLES Mary l Result Performing Organization Address [facility] de Phone Number [address] [place] [address] * Hepatitis C antibody Blood (06/29/2025 1:03 PM CDT) Pathologist [facility] Hep C Ab Nonreactive Nonreactive Comment: Antibodies to HCV not detected. Does NOT exclude the possibility of recent exposure to HCV. Current interpretive data was last revised on 22 Interpretive Data Nonreactive: Antibodies to HCV not detected. Does NOT exclude the possibility of recent exposure to HCV. Equivocal: Equivocal for HCV antibodies. Supplemental molecular testing will be automatically performed to determine infection status in accordance with current CDC screening recommendations. Reactive: Positive for HCV antibodies. This may represent current or past HCV infection. Supplemental molecular testing will be automatically performed to determine current infection status in accordance with current CDC screening recommendations. Interpretive data was last revised on 2019. Blood 06/29/2025 1:03 PM CDT 06/29/2025 6:16 PM CDT Result [facility] Payton Carty MD LAB MICROBIOLOGY - GENERA L ORDERABLES Final Result Performing Organization Address [facility] de Phone Number [facility] [address] [facility] [place] [address] * Hemoglobin A1c (06/29/2025 1:03 PM CDT) [facility] Hgb A1C 5.6 4.0 - 5.6 % Estimated Average Glucose 114 mg/dL [facility] Comment: The ADA recommends reporting an estimated Average Glucose (eAG) with all Hemoglobin A1c results using the equation derived from a study of 507 normal and diabetic adults. Minority populations were underrepresented and children were not included. (Diabetes Care 31:0090-3289, 2008). The eAG is not equivalent to a fasting glucose. Blood 06/29/2025 1:03 PM CDT 06/29/2025 6:19 PM CDT [facility] Payton Carty MD LAB BLOOD ORDERABLES Mary pablo Result [facility] [address] [facility] Department [place] [address] * (ABNORMAL) Lipid panel (06/29/2025 1:03 PM CDT) Cholesterol 262(H) 30 - 199 mg/dL Comment: Interpretive Data Ages < or = 19 years Acceptable: <170 mg/dL Borderline high: 170-199 mg/dL High: >or= 200 mg/dL Ages > or = 20 years Desirable: <200 mg/dL Borderline high: 200-239 mg/dL High: >or= 240 mg/dL Literature References: 1. Expert Panel on Integrated Guidelines for Cardiovascular Health and Risk Reduction in Children and Adolescents. Pediatrics 2011;128:S213 2. NCEP Expert Panel. Circulation 2004;110:227 Current Interpretive Data was last revised on 2018. Triglycerides 92 <=149 mg/dL [facility] Comment: Interpretive Data Ages < or = 9 years Acceptable: <75 mg/dL Borderline high: 75-99 mg/dL High: >or= 100 mg/dL Ages 10 to 20 years Acceptable: <90 mg/dL Borderline high: 90-129 mg/dL High: >or= 130 mg/dL Ages > or = 20 years Desirable: <150 mg/dL Borderline high: 150-199 mg/dL High: 200-499 mg/dL Very high: >or= 499 mg/dL Literature References: 1. Expert Panel on Integrated Guidelines for Cardiovascular Health and Risk Reduction in Children and Adolescents. Pediatrics 2011;128:S213 2. NCEP Expert Panel. Circulation 2004;110:227 Current Interpretive Data was last revised on 2018. HDL 61 >=40 mg/dL [facility] Comment: Interpretive Data Ages < or = 19 years Acceptable: >45 mg/dL Borderline low: 40-45 mg/dL Low: <40 mg/dL Ages > or = 20 years Desirable: >or= 60 mg/dL Low: <40 mg/dL Literature References: 1. Expert Panel on Integrated Guidelines for Cardiovascular Health and Risk Reduction in Children and Adolescents. Pediatrics 2011;128:S213 2. NCEP Expert Panel. Circulation 2004;110:227 Current Interpretive Data was last revised on 2018. LDL, calculated 185(H) <=129 mg/dL [facility] Comment: Interpretive Data Ages < or = 19 years Acceptable: <110 mg/dL Borderline high: 110-129 mg/dL High: >or= 130 mg/dL Ages > or = 20 years Optimal: <100 mg/dL Near optimal: 100-129 mg/dL Borderline high: 130-159 mg/dL High: >160 mg/dL Calculated using the Sarbjit LDL-C estimating equation. This equation was implemented on 2024. Prior to this date LDL-C was estimated using the Friedewald equation. Literature References: 1. Expert Panel on Integrated Guidelines for Cardiovascular Health and Risk Reduction in Children and Adolescents. Pediatrics 2011;128:S213 2. NCEP Expert Panel. Circulation 2004;110:227 3. Sarbjit Trejo et al. CARLA Cardiol. 2019January 07;5(5):540-548. doi: 10.1001/jamacardio.2020.0013 Current Interpretive Data was last revised on 2024. Non-HDL Cholesterol 201 mg/dL [facility] Comment: Interpretive Data Ages < or = 19 years Acceptable: <120 mg/dL Borderline high: 120-144 mg/dL High: >145 mg/dL Ages > or = 20 years When triglycerides are >200 mg/dL, Non-HDL cholesterol is a secondary target of therapy with treatment goals that are 30 mg/dL greater than the LDL cholesterol target. Literature References: 1. Expert Panel on Integrated Guidelines for Cardiovascular Health and Risk Reduction in Children and Adolescents. Pediatrics 2011;128:S213 2. NCEP Expert Panel. Circulation 2004;110:227 Current Interpretive Data was last revised on 2018. Chol/HDL ratio 4 [facility]ATIFELD Blood 06/29/2025 1:03 PM CDT 06/29/2025 6:16 PM CDT [facility] Payton Carty MD LAB BLOOD ORDERABLES Mary l Result Performing Organization Address City/[facility]/ZIP Co de Phone Number [facility] [address] [facility] Department [place] [address] * Comprehensive metabolic panel (06/29/2025 1:03 PM CDT) Sodium 140 135 - 145 mmol/L Potassium, pl 4.1 3.3 - 4.9 mmol/L [facility] Chloride 102 97 - 110 mmol/L [facility] CO2 29 22 - 32 mmol/L [facility] Anion gap 9 2 - 15 mmol/L [facility] BUN 16 6 - 25 mg/dL [facility] Creatinine 1.04 0.60 - 1.10 mg/dL [facility] Glucose 97 70 - 199 mg/dL [facility] Comment: Interpretive Data Fasting glucose >/= 126 mg/dl is diagnostic for diabetes. Fasting is defined as no caloric intake for at least 8 hours. Fasting glucose between 100 mg/dl to 125 mg/dl is diagnostic of prediabetes. In a patient with classic symptoms of hyperglycemia or hyperglycemic crisis, a random glucose >/= 200 mg/dl is diagnostic for diabetes. In the absence of unequivocal hyperglycemia, results should be confirmed by repeat testing. The classification and Diagnosis of Diabetes Diabetes Care 202; 46: S19-S40. Current interpretive data was last revised 2022. Calcium 9.8 8.5 - 10.3 mg/dL [facility] Bilirubin, total 0.4 0.1 - 1.2 mg/dL [facility] Protein, pl 6.7 6.5 - 8.5 g/dL [facility] Albumin 4.2 3.5 - 5.0 g/dL [facility] Alk phos 59 40 - 130 Units/L [facility] ALT 15 7 - 45 Units/L [facility] AST 22 10 - 45 Units/L [facility] Blood 06/29/2025 1:03 PM CDT 06/29/2025 6:16 PM CDT [facility] Payton Carty MD LAB BLOOD ORDERABLES Mary l Result Performing Organization Address [facility]/ZIP Co de Phone Number [facility] [address] [facility] Department [place] [address] from Last 3 Months Insurance [employer] MEDICARE Care Teams Garnett Machine Operator Helper Relationship Specialty Start Date End Date Yareli Carty MD [address] [facility] [address] [place] [address] PCP - General Family Medicine 06/29/25
--- OUTSIDE RECORDS SUMMARY | 2025-08-28 18:14 | XMS_ITS | Data Portability ---
Author Organization [place] - [facility] [employer], Main Office Address [address] [place] [id number] Care Team Providers Care Roving Can Tender Name Role Phone ANIBAL PRETTY Primary Care Provider [phone] Assessment Encounter Date Assessment Date Assessment LastModified by Organization Details LastModified Time 02/04/2024 02/04/2024 63 yo F with - CERVICAL SPONDYLOSIS - CERVICAL DISC PROLAPSE - HLD, improved - GERD - DEPRESSION - ANXIETY - OBESITY II - H/O LT BREAST CANCER - H/O MICROSCOPIC HEMATURIA - H/O VIT D DEFICIENCY MRI c-spine wo: 01/29/24. X-ray Lt shoulder: 01/28/24. X-ray c-spine: 12/11/23. Annual labs: 10/03/23. Annual labs: 08/14/22. D/w pt in detail about her conditions, recent labs & imagines and further plan of care. Explained about different options for her. Will refer pt to Pain clinic. Meds as directed. Advised pt to talk with close friend/family member on a regular basis. Educated about alarming symptoms to monitor at home and call us back Or get checked in ED. Pt verbalized understanding it. Diet and exercise explained in detail. BP diary education given and call us if any concerns. F/u with Pain clinic as per schedule. Cont f/u with Counsellor as per schedule. Cont f/u with Onco at [place] as per schedule. Pt has done PT in the past. HM: WWE - 2019, normal as per pt. Referred to [facility]/Gyne. Mammo - 01/23/24, normal as per pt. Pt is seeing specialist for it. Colonoscopy - 2019, polyps ++. Cont f/u with GI as per schedule (5 yrs). DEXA - 10/22/23, osteopenia ++. Flu - 07/01. Tdap - 07/31. Pneumo - 08/14/22. Shingrix - At pharmacy/HD. F/u in 3-4 months. Annual labs in 10/03. [email or web address] Not available 02/04/2024 17:43:31 02/09/2025 02/09/2025 64 yo F with - WELL ADULT VISIT - HLD, improved - GERD - DEPRESSION - ANXIETY - CERVICAL SPONDYLOSIS - CERVICAL DISC PROLAPSE - OBESITY I - H/O LT BREAST CANCER - H/O MICROSCOPIC HEMATURIA - H/O VIT D DEFICIENCY MRI c-spine wo: 01/29/24. X-ray Lt shoulder: 01/28/24. X-ray c-spine: 12/11/23. Annual labs: 10/03/23. Annual labs: 08/14/22. D/w pt in detail about her conditions, recent labs & imagines and further plan of care. Will do routine labs. Meds as directed. Advised pt to talk with close friend/family member on a regular basis. Educated about alarming symptoms to monitor at home and call us back Or get checked in ED. Pt verbalized understanding it. Diet and exercise explained in detail. BP diary education given and call us if any concerns. F/u with Pain clinic as per schedule. Cont f/u with Psych at [place] as per schedule. Cont f/u with Counsellor as per schedule. Cont f/u with Onco at [place] as per schedule. Pt has done PT in the past. HM: WWE - 2019, normal as per pt. Referred to [facility]/Gyne. Mammo - 01/23/24, normal as per pt. Pt is seeing specialist for it. Colonoscopy - 2019, polyps ++. Cont f/u with GI as per schedule (5 yrs). DEXA - 10/22/23, osteopenia ++. Flu - 07/02. Tdap - 07/31. Pneumo - 08/14/22. Shingrix - At pharmacy/HD. F/u in 2-3 weeks. Annual labs in 03/04. [email or web address] Not available 02/09/2025 15:42:14 Plan of Treatment Reminders Order Date Submit Date Provider Last Modified By Organization Details Last Modified Time Details Appointments None recorded. Lab lipid panel, serum 2024 025 [place] [id number] 4 [facility] (Lab), [address] [place], [address], 5 16:01:24 CBC w/ auto diff 2024 025 [facility] (Lab), [address] [place], [address], 5 19:17:28 CMP, serum or plasma 2024 025 [facility] (Lab), [address] [place], [address], 5 20:16:03 urinalysi s complete, reflex culture [address] (Lab), [address] [place], [address], 5 16:02:02 vitamin B12 + folate, serum or blood [address] (Lab), [address] [place], [address], 5 12:51:35 glycohemo globin, total, blood 2024 025 [facility] (Lab), [address] [place], [address], 5 13:27:12 TSH, serum or plasma 2024 025 [facility] (Lab), [address] [place], [address], 5 20:19:00 vitamin D, 25-hydrox y, total, serum [address] (Lab), [address] [place], [address], 5 12:51:35 magnesium , serum or plasma 2024 025 [facility] (Lab), [address], [place], [address], 5 20:16:08 Referral gastroent erologist referral - H/o polyps +++. Please call patient to schedule an appointme nt. Thank you. 2024 025 [email or web address] [facility], [address], [address], [place], [address], 09:18:37 pain managemen t referral - Please call patient to schedule an appointme nt. Thank you. 2023 024 [email or web address] [facility], [address], [address], [place], [address], 4 08:55:03 Procedures None recorded. Surgeries None recorded. Imaging XR, shoulder, 2 or more view 2023 KAREN Not available 4 18:53:03 MRI, cervical spine, w/o contrast - *Please call pt to schedule* 2023 024 KAREN Not available 4 08:33:52 Medication Orders buspirone 7.5 mg tablet 2024 025 [facility]88078, [address], [place], [id number], 5 15:37:20 atorvasta tin 20 mg tablet 2024 025 [facility], [address], [place], [id number], 5 15:37:22 Calcium 600 + D(3) 600 mg-10 mcg (400 unit) tablet 2024 [facility] #81021, [address] [facility], [place], [place], [id number], 15:37:25 gabapenti n 300 mg capsule 2024 [facility] #92914, [address] [facility], [place], [place], [id number], 15:37:18 tizanidin e 4 mg tablet 2024 [facility] #54905, [address] [facility], [place], [place], [id number], 15:37:14 pantopraz ole 40 mg tablet,de layed release 2024 [facility] #37431, [address] [facility], [place], [place], [id number], 15:37:21 duloxetin e 60 mg capsule,d elayed release 2024 [facility] #52821, [address] [facility], [place], [place], [id number], 15:37:17 polyethyl dov glycol 3350 17 gram/dose oral powder 2024 [facility] #07257, [address] [facility], [place], [place], [id number], 13:10:32 docusate sodium 100 mg capsule 2024 [facility] #10694, [address] [facility], [place], [place], [id number], 13:10:33 ondansetr on 4 mg disintegr ating tablet 2024 025 [email or web address] [facility] #79699, [address] [facility], [place], [place], [id number], 5 15:42:45 duloxetin e 60 mg capsule,d elayed release 2024 025 [facility] #64562, [address] [facility], [place], [place], [id number], 5 13:08:23 buspirone 7.5 mg tablet 2023 024 [facility] #76760, [address] [facility], [place], [place], [id number], 4 17:44:16 gabapenti n 300 mg capsule 2023 024 [facility] #28008, [address] [facility], [place], [place], [id number], 4 17:44:15 tizanidin e 4 mg tablet 2023 024 [facility] #12959, [address] [facility], [place], [place], [id number], 4 17:44:14 atorvasta tin 20 mg tablet 2023 024 [facility] #15941, [address] [facility], [place], [place], [id number], 4 17:44:12 Calcium 600 + D(3) 600 mg-10 mcg (400 unit) tablet 2023 024 [facility] #20508, [address] [facility], [place], [place], [id number], 4 17:45:03 pantopraz ole 40 mg tablet,de layed release 2023 024 [facility] #74304, [address] [facility], [place], [place], [id number], 4 17:44:14 duloxetin e 60 mg capsule,d elayed release 2023 024 [facility] #71463, [address] [facility], [place], [place], [id number], 4 17:44:14 tramadol 50 mg tablet 2023 024 [email or web address] [facility] #58841, [address] [facility], [place], [place], [id number], 5 15:42:49 diclofena c sodium 75 mg tablet,de layed release 2023 024 [facility] #70543, [address] [facility], [place], [place], [id number], 5 15:42:32 Patient TargetsNo targets recorded. Patient InstructionsNo instructions recorded. Reason for Referral Pain Management Referral for Prolapsed cervical intervertebral disc Chronic neck pain, PT done, abnormal MRI c-spine wo Please call patient to schedule an appointment. Thank you. Referring Physician: Anibal Pretty [facility] Medicine, Encounter Date: 02/04/2024 Nailhead Operator Referral for Screening colonoscopy H/o polyps +++. Please call patient to schedule an appointment. Thank you. Referring Physician: Anibal Pretty [facility], Encounter Date: 02/09/2025 Results Created Date Observation Date Name Description Value Unit Range Abnormal Flag Note LastModifiedBy Organization Detail LastModifiedTime 01/22/20 24 01/22/2024 LIPID PANEL cholesterol 165 mg/dL 140-19 9 [facility] SELENA NSUS RECOM MENDA TION FOR JOSE STERO L: ADULT CHILD LOW RISK: <200 <170 BORDE RLINE : <200- 239 ----- HIGH RISK: >240 >200 Not Available [facility] (Lab) [address] [place], [address], 01/22/2024 20:39:16 01/22/20 24 01/22/2024 LIPID PANEL triglyceride s 75 mg/dL 0-150 NIH SELENA NSUS REPOR T RECOM MENDA TION FOR TRIGL YCERI BENIGNO: ADULT CHILD LOW RISK: <150 ----- BODER LINE: 150-1 99 ----- HIGH RISK: >200 ----- Not Available [facility] (Lab) [address] [place], [address], 01/22/2024 20:39:16 01/22/20 24 01/22/2024 LIPID PANEL HDL cholesterol 66 mg/dL 40- Not Available [facility] (Lab) [address] [place], [address], 01/22/2024 20:39:16 01/22/20 24 01/22/2024 LIPID PANEL LDL cholesterol, calculated 84 mg/dL 0-130 NIH SELENA NSUS REPOR T RECOM MENDA TIONS FOR LDL: ADULT CHILD LOW RISK <130 <110 (OPTI MAL LDL) <100 ----- BORDE RLINE : 130-1 59 ----- HIGH RISK: >160 >130 A TRIGL YCERI DE RESUL T >400 INVAL IDATE S THE CALCU LATIO N FOR LDL FRACT IONAT ION - THE LDL RESUL T WILL NOT BE REPOR GEOVANY. Not Available [facility] (Lab) [address] [place], [address], 01/22/2024 20:39:16 02/10/20 25 02/09/2025 CBC/C OMPLE TE BLD COUNT W/DIF F white blood cells 4.6 x10'3 /uL 4.2-10 .8 Not Available [facility] (Lab) [address] [place], [address], 02/09/2025 19:17:28 02/10/20 25 02/09/2025 CBC/C OMPLE TE BLD COUNT W/DIF F red blood cells 4.41 x10'6 /uL 3.80-5 .20 Not Available [facility] (Lab) [address] [place], [address], 02/09/2025 19:17:28 02/10/20 25 02/09/2025 CBC/C OMPLE TE BLD COUNT W/DIF F hemoglobin 13.1 g/dL 12.0-1 5.6 Not Available [facility] (Lab) [address] [place], [address], 02/09/2025 19:17:28 02/10/20 25 02/09/2025 CBC/C OMPLE TE BLD COUNT W/DIF F hematocrit 39.7 % 35.7-4 5.7 Not Available [facility] (Lab) [address] [place], [address], 02/09/2025 19:17:28 02/10/20 25 02/09/2025 CBC/C OMPLE TE BLD COUNT W/DIF F mean red cell volume 90.0 fL 82.0-9 9.0 Not Available [facility] (Lab) [address] [place], [address], 02/09/2025 19:17:28 02/10/20 25 02/09/2025 CBC/C OMPLE TE BLD COUNT W/DIF F mean red cell hemoglobin 29.7 pg 27.0-3 3.0 Not Available [facility] (Lab) [address] [place], [address], 02/09/2025 19:17:28 02/10/20 25 02/09/2025 CBC/C OMPLE TE BLD COUNT W/DIF F mean RBC HGB concentratio n 33.0 g/dL 31.0-3 6.0 Not Available [facility] (Lab) [address] [place], [address], 02/09/2025 19:17:28 02/10/2002/09/2025 CBC/C OMPLE TE BLD COUNT W/DIF F red cell distribution width 12.4 % 11.8-1 5.5 Not Available [facility] (Lab) [address] [place], [address], 02/09/2025 19:17:28 02/10/2002/09/2025 CBC/C OMPLE TE BLD COUNT W/DIF F platelets 238 x10'3 /uL 150-40 0 Not Available [facility] (Lab) [address] [place], [address], 02/09/2025 19:17:28 02/10/2002/09/2025 CBC/C OMPLE TE BLD COUNT W/DIF F mean platelet volume 10.7 fL 9.0-12 .4 Not Available [facility] (Lab) [address] [place], [address], 02/09/2025 19:17:28 02/10/2002/09/2025 CBC/C OMPLE TE BLD COUNT W/DIF F neutrophils 50.7 % 39.0-7 2.0 Not Available [facility] (Lab) [address] [place], [address], 02/09/2025 19:17:28 02/10/2002/09/2025 CBC/C OMPLE TE BLD COUNT W/DIF F lymphocytes 36.6 % 16.0-4 7.0 Not Available [facility] (Lab) [address] [place], [address], 02/09/2025 19:17:28 02/10/2002/09/2025 CBC/C OMPLE TE BLD COUNT W/DIF F monocytes 6.6 % 5.0-12 .0 Not Available [facility] (Lab) [address] [place], [address], 02/09/2025 19:17:28 02/10/2002/09/2025 CBC/C OMPLE TE BLD COUNT W/DIF F eosinophils 4.8 % 1.0-7. 0 Not Available [facility] (Lab) [address] [place], [address], 02/09/2025 19:17:28 02/10/2002/09/2025 CBC/C OMPLE TE BLD COUNT W/DIF F basophils 1.1 % 0.0-2. 0 Not Available [facility] (Lab) [address] [place], [address], 02/09/2025 19:17:28 02/10/2002/09/2025 CBC/C OMPLE TE BLD COUNT W/DIF F immature granulocytes 0.2 % 0.00-0 .50 Not Available [facility] (Lab) [address] [place], [address], 02/09/2025 19:17:28 02/10/20 25 02/09/2025 CBC/C OMPLE TE BLD COUNT W/DIF F neutrophils, absolute count 2.31 x10'3 /uL 1.5-8. 0 Not Available [facility] (Lab) [address] [place], [address], 02/09/2025 19:17:28 02/10/2002/09/2025 CBC/C OMPLE TE BLD COUNT W/DIF F lymphocytes, absolute count 1.67 x10'3 /uL 1.07-3 .43 Not Available [facility] (Lab) [address] [place], [address], 02/09/2025 19:17:28 02/10/2002/09/2025 CBC/C OMPLE TE BLD COUNT W/DIF F monocytes, absolute count 0.30 x10'3 /uL 0.29-0 .99 Not Available [facility] (Lab) [address] [place], [address], 02/09/2025 19:17:28 02/10/20 25 02/09/2025 CBC/C OMPLE TE BLD COUNT W/DIF F eosinophils, absolute count 0.22 x10'3 /uL 0.02-0 .53 Not Available [facility] (Lab) [address] [place], [address], 02/09/2025 19:17:28 02/10/20 25 02/09/2025 CBC/C OMPLE TE BLD COUNT W/DIF F basophils, absolute count 0.05 x10'3 /uL 0.01-0 .08 Not Available [facility] (Lab) [address] [place], [address], 02/09/2025 19:17:28 02/10/20 25 02/09/2025 CBC/C OMPLE TE BLD COUNT W/DIF F immature granulocytes ,absolute 0.01 x10'3 /uL 0.00-0 .05 Not Available [facility] (Lab) [address] [place], [address], 02/09/2025 19:17:28 02/10/20 25 02/09/2025 CBC/C OMPLE TE BLD COUNT W/DIF F nucleated red blood cells 0.0 % -0 Not Available [facility] (Lab) [address] [place], [address], 02/09/2025 19:17:28 02/10/20 25 02/09/2025 CBC/C OMPLE TE BLD COUNT W/DIF F NRBC# 0.00 x10'3 /uL Not Available [facility] (Lab) [address] [place], [address], 02/09/2025 19:17:28 02/10/20 25 02/09/2025 URINA LYSIS COMPL ETE/I RIS W/RFX color YELLOW Not Available [facility] (Lab) [address] [place], [address], 02/09/2025 19:23:23 02/10/20 25 02/09/2025 URINA LYSIS COMPL ETE/I RIS W/RFX appear EXTRA TURBID abnormal Not Available [facility] (Lab) [address] [place], [address], 02/09/2025 19:23:23 02/10/20 25 02/09/2025 URINA LYSIS COMPL ETE/I RIS W/RFX specific gravity 1.031 1.001- 1.030 high Not Available [facility] (Lab) [address] [place], [address], 02/09/2025 19:23:23 02/10/20 25 02/09/2025 URINA LYSIS COMPL ETE/I RIS W/RFX pH 5.5 pH_un its 5.0-9. 0 Not Available [facility] (Lab) [address] [place], [address], 02/09/2025 19:23:23 02/10/20 25 02/09/2025 URINA LYSIS COMPL ETE/I RIS W/RFX leukocytes NEGATI VE trevon/u L negati ve- Not Available [facility] (Lab) [address] [place], [address], 02/09/2025 19:23:23 02/10/20 25 02/09/2025 URINA LYSIS COMPL ETE/I RIS W/RFX nitrite NEGATI VE negati ve- Not Available [facility] (Lab) [address] [place], [address], 02/09/2025 19:23:23 02/10/20 25 02/09/2025 URINA LYSIS COMPL ETE/I RIS W/RFX protein 30 mg/dL negati ve- abnormal Not Available [facility] (Lab) [address] [place], [address], 02/09/2025 19:23:23 02/10/20 25 02/09/2025 URINA LYSIS COMPL ETE/I RIS W/RFX glucose NORMAL mg/dL normal - Not Available [facility] (Lab) [address] [place], [address], 02/09/2025 19:23:23 02/10/20 25 02/09/2025 URINA LYSIS COMPL ETE/I RIS W/RFX ketones NEGATI VE mg/dL negati ve- Not Available [facility] (Lab) [address] [facility] [place], [address], 02/09/2025 19:23:23 02/10/20 25 02/09/2025 URINA LYSIS COMPL ETE/I RIS W/RFX urobilinogen 2 mg/dL normal - abnormal Not Available [facility] (Lab) [address] [facility] [place], [address], 02/09/2025 19:23:23 02/10/20 25 02/09/2025 URINA LYSIS COMPL ETE/I RIS W/RFX bilirubin NEGATI VE mg/dL negati ve- Not Available [facility] (Lab) [address] [place], [address], 02/09/2025 19:23:23 02/10/20 25 02/09/2025 URINA LYSIS COMPL ETE/I RIS W/RFX blood NEGATI VE mg/dL negati ve- Not Available [facility] (Lab) [address] [place], [address], 02/09/2025 19:23:23 02/10/20 25 02/09/2025 URINA LYSIS COMPL ETE/I RIS W/RFX white blood cells 0-8 /i??h pfi?? 0-8 Not Available [facility] (Lab) [address] [place], [address], 02/09/2025 19:23:23 02/10/20 25 02/09/2025 URINA LYSIS COMPL ETE/I RIS W/RFX red blood cells 0-4 /i??h pfi?? 0-4 Not Available [facility] (Lab) [address] [place], [address], 02/09/2025 19:23:23 02/10/20 25 02/09/2025 URINA LYSIS COMPL ETE/I RIS W/RFX bacteria OCCASI ONAL none seen- abnormal Not Available [facility] (Lab) [address] [place], [address], 02/09/2025 19:23:23 02/10/20 25 02/09/2025 URINA LYSIS COMPL ETE/I RIS W/RFX mucous MANY /i??l pfi?? none seen- abnormal Not Available [facility] (Lab) [address] [place], [address], 02/09/2025 19:23:23 02/10/20 25 02/09/2025 URINA LYSIS COMPL ETE/I RIS W/RFX squamous epithelial PACKED FIELD /i??l pfi?? abnormal Not Available [facility] (Lab) [address] [place], [address], 02/09/2025 19:23:23 02/10/20 25 02/09/2025 URINA LYSIS COMPL ETE/I RIS W/RFX calcium oxalate crystal OCCASI ONAL /i??h pfi?? none seen- abnormal Not Available [facility] (Lab) [address] [place], [address], 02/09/2025 19:23:23 02/10/20 25 02/09/2025 LIPID PANEL cholesterol 151 mg/dL 140-19 9 NIH SELENA NSUS RECOM MENDA TION FOR JOSE STERO L: ADULT CHILD LOW RISK: <200 <170 BORDE RLINE : <200- 239 ----- HIGH RISK: >240 >200 Not Available [facility] (Lab) [address] [place], [address], 02/09/2025 20:15:57 02/10/20 25 02/09/2025 LIPID PANEL triglyceride s 75 mg/dL 0-150 NIH SELENA NSUS REPOR T RECOM MENDA TION FOR TRIGL YCERI BENIGNO: ADULT CHILD LOW RISK: <150 ----- BODER LINE: 150-1 99 ----- HIGH RISK: >200 ----- Not Available [facility] (Lab) [address] [place], [address], 02/09/2025 20:15:57 02/10/20 25 02/09/2025 LIPID PANEL HDL cholesterol 64 mg/dL 40- Not Available [facility] (Lab) [address] [place], [address], 02/09/2025 20:15:57 02/10/20 25 02/09/2025 LIPID PANEL LDL cholesterol, calculated 72 mg/dL 0-130 NIH SELENA NSUS REPOR T RECOM MENDA TIONS FOR LDL: ADULT CHILD LOW RISK <130 <110 (OPTI MAL LDL) <100 ----- BORDE RLINE : 130-1 59 ----- HIGH RISK: >160 >130 A TRIGL YCERI DE RESUL T >400 INVAL IDATE S THE CALCU LATIO N FOR LDL FRACT IONAT ION - THE LDL RESUL T WILL NOT BE REPOR GEOVANY. Not Available [facility] (Lab) [address] [place], [address], 02/09/2025 20:15:57 02/10/20 25 02/09/2025 COMPR EHENS ROSALEE METAB OLIC PANEL sodium 141 mmol/ L 137-14 5 Not Available [facility] (Lab) [address] [place], [address], 02/09/2025 20:16:03 02/10/20 25 02/09/2025 COMPR EHENS ROSALEE METAB OLIC PANEL potassium 3.9 mmol/ L 3.5-5. 1 Not Available [facility] (Lab) [address] [place], [address], 02/09/2025 20:16:03 02/10/20 25 02/09/2025 COMPR EHENS ROSALEE METAB OLIC PANEL chloride 106 mmol/ L 98-107 Not Available [facility] (Lab) [address] [place], [address], 02/09/2025 20:16:03 02/10/20 25 02/09/2025 COMPR EHENS ROSALEE METAB OLIC PANEL carbon dioxide 27 mmol/ L 22-30 Not Available [facility] (Lab) [address] [place], [address], 02/09/2025 20:16:03 02/10/20 25 02/09/2025 COMPR EHENS ROSALEE METAB OLIC PANEL anion gap 11.9 mmol/ L 14-22 low Not Available [facility] (Lab) [address] [place], [address], 02/09/2025 20:16:03 02/10/20 25 02/09/2025 COMPR EHENS ROSALEE METAB OLIC PANEL glucose 95 mg/dL 70-99 Not Available [facility] (Lab) [address] [place], [address], 02/09/2025 20:16:03 02/10/20 25 02/09/2025 COMPR EHENS ROSALEE METAB OLIC PANEL BUN 16 mg/dL 8-19 Not Available [facility] (Lab) [address] [place], [address], 02/09/2025 20:16:03 02/10/20 25 02/09/2025 COMPR EHENS ROSALEE METAB OLIC PANEL creatinine 1.01 mg/dL 0.66-1 .25 Not Available [facility] (Lab) [address] [place], [address], 02/09/2025 20:16:03 02/10/20 25 02/09/2025 COMPR EHENS ROSALEE METAB OLIC PANEL GFR 55 Refer ence Range : [place] ge GFR Healt hy Adult : >60 mL/mi n/1.7 3 m2 Chron ic Kidne y Disea se: 15-60 mL/mi n/1.7 3 m2 Kidne y Failu re: <15/m L/min /1.73 m2 www.n iddk. nih.g ov The MDRD study equat ion has not been valid ated in child gena <18 years of age; pregn ant women ; the elder ly >85 years of age; or in some racia l or ethni c subgr oups, such as Hispa nics. Outsi de the valid ated jesus eters , estim ated GFR is less accur ate, requi ring clini chica judgm ent on a case- by-ca se basis . Clini chica inter preta tion for other races and ages must be made by the clini jayshree. The MDRD study equat ion has not been valid ated for the evalu ation of serum creat inine relat ed to nutri josy l statu s or medic ation usage . For perso ns <18 years of age, a pedia tric GFR calcu lator is avail able on the [facility] websi te: https :[email or web address] w.laura montes.o rg/pr ofess ional s/kdo qi/gf r_cal culat or Not Available [facility] (Lab) [address] [place], [address], 02/09/2025 20:16:03 02/10/20 25 02/09/2025 COMPR EHENS ROSALEE METAB OLIC PANEL alkaline phosphatase 71 U/L 38-[address] [facility] (Lab) [address] [place], [address], 02/09/2025 20:16:03 02/10/20 25 02/09/2025 COMPR EHENS ROSALEE METAB OLIC PANEL alanine aminotransfe rase 21 U/L 0-35 Not Available [facility] (Lab) [address] [place], [address], 02/09/2025 20:16:03 02/10/20 25 02/09/2025 COMPR EHENS ROSALEE METAB OLIC PANEL aspartate aminotransfe rase 26 U/L 15-37 Not Available [facility] (Lab) [address] [place], [address], 02/09/2025 20:16:03 02/10/20 25 02/09/2025 COMPR EHENS ROSALEE METAB OLIC PANEL bilirubin, total 0.80 mg/dL 0.20-1 .30 Not Available [facility] (Lab) [address] [place], [address], 02/09/2025 20:16:03 02/10/20 25 02/09/2025 COMPR EHENS ROSALEE METAB OLIC PANEL calcium 9.3 mg/dL 8.4-10 .2 Not Available [facility] (Lab) [address] [place], [address], 02/09/2025 20:16:03 02/10/20 25 02/09/2025 COMPR EHENS ROSALEE METAB OLIC PANEL total protein 6.4 g/dL 6.3-8. 2 Not Available [facility] (Lab) [address] [place], [address], 02/09/2025 20:16:03 02/10/20 25 02/09/2025 COMPR EHENS ROSALEE METAB OLIC PANEL albumin 4.1 g/dL 3.0-4. 4 Not Available [facility] (Lab) [address] [place], [address], 02/09/2025 20:16:03 02/10/20 25 02/09/2025 COMPR EHENS ROSALEE METAB OLIC PANEL globulin 2.3 g/dL 2.6-4. 2 low Not Available [facility] (Lab) [address] [place], [address], 02/09/2025 20:16:03 02/10/20 25 02/09/2025 COMPR EHENS ROSALEE METAB OLIC PANEL A/G ratio 1.8 ratio 1.0-2. 0 Not Available [facility] (Lab) [address] [place], [address], 02/09/2025 20:16:03 02/10/20 25 02/09/2025 MAGNE SIUM magnesium 2.0 mg/dL 1.6-2. 3 Not Available [facility] (Lab) [address] [place], [id number], 02/09/2025 20:16:08 02/10/20 25 02/09/2025 TSH W/REF ELZBIETA FT4 TSH with reflex free T4 1.490 uIU/m L 0.465- 4.680 Not Available [facility] (Lab) [address] [place], [id number], 02/09/2025 20:19:00 02/10/20 25 02/09/2025 VITAM IN D 25-HY DROXY [id number] 32.4 NG/mL 30-100 Vitam in D Statu s: Defic ient: <20 ng/mL Insuf ficie nt: 20-29 ng/mL Suffi cient : 30-10 0 ng/mL Not Available [facility] (Lab) [address] [place], [address], 02/09/2025 20:30:12 02/10/20 25 02/09/2025 VITAM IN B12 (RUMA CHIVO ) vb12 212 pg/mL 239-93 1 low Not Available [facility] (Lab) [address] [place], [address], 02/09/2025 20:52:32 02/10/20 25 02/09/2025 FOLAT E, SERUM /PLAS MA folate 10.6 NG/mL 2.76-2 0.0 Not Available [facility] (Lab) [address] [place], [address], 02/09/2025 20:52:37 02/10/20 25 02/10/2025 HEMOG LOBIN A1C HA1C 5.9 % 4.0-6. 0 Diabe april Scree robert Crite danny: <5.7% Consi stent with absen ce of diabe april 5.7-6 .4% Consi stent with incre ased risk for diabe april (pred iabet es) >OR=6 .5% Consi stent with diabe april REFER ENCE: Diabe april Care 2016, 39(Gray ppl.1 ):s13 -s22 Not Available [facility] (Lab) [address] [place], [address], 02/10/2025 13:27:12 01/28/20 24 XR, shoul kyrie, 2 or more view [facility] [address] [place] [address] Patien t Name: NATALIIA SALAZAR Access ion #: [id number] Sex: F : 1959 1 4 Dictat ed By: Roel Reynolds Attend ing Physic david: RODRÍGUEZ PRETTY [facility] Physic david: RODRÍGUEZ PRETTY Exam Date: 2023 15:14 PM Exam Name: XR SHOULD ER LT 2V+ Admitt ing Diagno sis(es ): CLINIC AL INDICA TION: pain of left should er TECHNI QUE: 3 radiog raphic views of the left should er were obtain ed. Compar smitha: FINDIN GS/IMP RESSIO N: There is no eviden ce of acute fractu re or disloc ation. The visual ized joint space is well mainta ined. The alignm ent is anatom ical. There is no radiop aque foreig n body. Electr onical ly Signed by: Roel Reynolds at 2023 17:50: 51 PM Page 1 [facility] (Imaging) [address], [place], [address], 02/04/2024 17:38:58 01/28/20 24 01/28/2024 XR, shoul kyrie, 2 or more view No observ ation record ed. [email or web address] [facility] [address], [place], [address], 02/04/2024 17:38:58 01/29/20 24 MRI, cervi chica spine , w/o contr ast [facility] [address] [facility] [address], [place] [address]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 Hyperlipidemia 82250275 E78.5 Cervical s pondylosis without myelopathy 140058956 M47.812 Prolapsed cervical intervertebral disc 062458972 M50.20 Depressive disorder 3548 9007 F32.A Anxiety disorder F41.9 Gastroesop hageal reflux disease without esophagitis 363070577 K21.9 Obesity 432726464 E66.9 Vitamin D deficiency 347 82225 E55.9 Osteopenia 065134801 M85 .80 Screening colonoscopy 44 0553205 Z12.11 Health Concerns Section Related Observation LastModified by Organization Detai ls LastModified Time None Recorded Concern Status LastModified by Organization Details LastModified Time None Recorded Advance Directives Directive N: Payers Insurance Date Sequence Insurance Name Policy Number Policy Bhatti Covered Member ID Bhatti Member ID Guarantor Name 04/18/2025 1 [employer] (MEDICARE REPLACEMENT/A DVANTAGE - PPO) [id number] Nataliia Raiza [id number] Nataliia Eastman 11/09/2024 2 [place] Nataliiamaribel Eastman [id number] Nataliia Eastman 11/09/2024 1 [employer] - OPEN ACCESS [id number] Nataliia Eastman [id number] Nataliia Eastman Notes Date Note Type Note Provider Name and Address Organization Details Recorded Time 01/16/2024 text/html ACV: C/o Lt sided neck pain, Lt shoulder pain and Lt UE tingling & numbness for last 1.5-2 months. Pt denies any fall/injury/traum a/heavy lifting at that time. Pt has seen Madeline for this and got x-ray and she has started PT, but she is still not getting better. Denies any other area pain. No other concern. Anibal Pretty MD [address] [place] [address], [phone], [facility] [employer] 01/16/2024 12:46:04 02/04/2024 text/html Pt is here for f/u on her lab, MRI, neck pain and chronic conditions. Doing overall well. Denies any problem with meds. Denies any new concern. C/o Lt sided neck pain, Lt shoulder pain and Lt UE tingling & numbness for last 1.5-2 months. Pt denies any fall/injury/traum a/heavy lifting at that time. Pt has seen Madeline for this and got x-ray and she has started PT, but she is still not getting better. Denies any other area pain. No other concern. Pt says her mood is about 80-90% improved compared to before. Denies any problem with meds. Denies any mood swings/SI/HI.Pt's in 02/28 and she moved to her family in this area. Pt is f/u with [facility] at [place] for her h/o Lt breast CA. Anibal Pretty MD [address] [facility] [facility] [address], [place], [address], [facility] [employer] [facility] [employer] 02/04/2024 17:55:26 11/09/2024 text/html ROS as noted in the HPI doing better on wellbutrin and duloxetine PENELOPE Ferguson [address], [place], [address], [employer] [facility] [employer] 11/14/2024 16:41:54 02/09/2025 text/html Pt is here for her annual exam. Doing overall well. Denies any problem with meds. Denies any new concern. Doing much better with her neck pain and she has not seen any Pain clinic yet. Pt denies any concern with it. Pt says her mood is very improved compared to before. Denies any problem with meds. Denies any mood swings/SI/HI. Pt is f/u with Psych at [place] for this too.Pt's in 02/28 and she moved to her family in this area. Pt is f/u with Onco at [place] for her h/o Lt breast CA. Anibal Pretty MD [address] [facility] [facility] [address], [place], [address], [employer] [facility] [employer] 02/09/2025 15:44:16 OBGyn Episode No OBEpisode recorded.
--- OUTSIDE RECORDS SUMMARY | 2025-08-28 18:14 | XMS_ITS | Clinical Summary ---
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 Gender Identity Not on file Sexual Orientation Not on file Plan of Treatment Health Maintenance Due Date Last Done Comments Colorectal Cancer Screening Colonoscopy (10 Years) 1960 Hepatitis C 1976 Zoster Vaccines (1 of 2) 2008 Annual Medicare Wellness Visit 2023 Dexa Scan (General) 2023 Pneumococcal Vaccine: 50+ Years (2 of 2 - PCV) 08/14/2023 08/14/2022 COVID-19 Vaccine ( - season) 2025 08/18/2023, 02/23/2021, 01/26/2021 Influenza Adult (#1) 2025 07/04/2022, 06/09/2022, 08/18/2021, Additional history exists Mammogram Screening 02/24/2027 02/24/2025, DTaP, Tdap and Td Vaccines (2 - Td or Tdap) 07/27/2032 07/27/2022, 09/18/2014 RSV Immunization or 60+ Years (1 - 1-dose 75+ series) 2033 Hepatitis A Vaccines Aged Out No long er eligible based on patient's age to complete this topic Meningococcal B Vaccine Aged Out No l onger eligible based on patient's age to complete this topic Meningococcal Vaccine Aged Out No arely stu eligible based on patient's age to complete this topic RSV Immunizations Under 20 Months Aged Out No longer eligible based on patient's age to complete this topic Procedures Procedure Name Priority Date/Time Associated Diagnosis Comments MG SCREENING W BRITTNEY LT DIGI Routine 02/24/2025 3:06 PM CDT Encounter for screening mammogram for malignant neoplasm of breast Malignant neoplasm of right breast in female, estrogen receptor positive, unspecified site of breast ([facility]) from Last 3 Months or Most Recently Relevant to Health Maintenance Results * MG SCREENING W BRITTNEY LT DIGI (02/24/2025 3:06 PM CDT) Anatomical Region Laterality Modality Breast Left Mammography 02/24/2025 4:17 PM CDT Impressions 02/24/2025 4:19 PM CDT ===== IMPRESSION: ===== 1. Stable mammographic appearance with no new findings to suggest malignancy in the breast. Assessment: ACR BI-RADS 2 - BENIGN FINDING(S) Recommendation: 1:Routine Screening Bilateral Comments: Ordered By: YANIQUE HORAN Interpreted By: Hortensia Calix, 02/24/2025 4:17 PM Narrative 02/24/2025 4:19 PM CDT [facility] [place] [address] EXAMINATION: Digital left screening mammogram with 3-D tomosynthesis EXAM DATE/TIME: 02/24/2025 3:02 PM REASON FOR EXAM: Routine screening Right-sided mastectomy for carcinoma in 2012.. Breast carcinoma in sister at undisclosed age. COMPARISON: 01/23/2024 Technique: Digital screening mammography of the left breast was performed. Left sided MLO and CC projections are obtained. This study was read with the assistance of a computer-aided detection system. Tissue density: There are scattered areas of fibroglandular density. Findings: There is no new focal asymmetry, dominant mass lesion, area of skin thickening, or cluster of suspicious appearing calcifications in the breast to suggest malignancy. 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
--- OUTSIDE RECORDS SUMMARY | 2025-08-28 18:14 | XMS_ITS | Encounter Summary ---
Author Organization [facility] Healthcare Address [address] [place] [address] Care Team Providers Care Wash Oil Pump Operator Helper Name Role Phone Yareli Carty MD Primary Care Provider [phone] Encounter Details Date Type Department Care Team (Latest Contact Info) Description 06/30/2025 Results Follow-Up [facility] Primary Care at [address] [address] Yareli Carty MD [address] [place] [address] [address] [place] [address] Lipid panel, Comprehensive metabolic panel, Hemoglobin A1c, Additional followed-up results: 5 Social History Tobacco Use Types Packs/Day Years Used Date Smoking Tobacco: Never Smokeless Tobacco: Never Alcohol Use Standard Drinks/Week Comments Yes 0 (1 standard drink = 0.6 oz pur e alcohol) PHQ-2 Answer Date Recorded PHQ-2 Total Score (If total score is 3 or more points, staff should administer the PHQ-9) 0 06/29/2025 AUDIT-C Answer Date Recorded Q1: How often do you have a drink containing alc ohol? Monthly or less 07/02/2025 Q2: How many drinks containi ng alcohol do you have on a typical day when you are drinking? 1 or 2 07/02/2025 Q3: How often do you have si x or more drinks on one occasion? Never 07/02/2025 Comments Unknown Sex and Gender Information Value Date Recorded Sex Assigned at Not on file Legal Sex Female 3:56 PM CDT Gender Identity Not on file Sexual Orientation Not on file documented as of this encounter Miscellaneous Notes * Result Encounter Note - Jia Boss MA - 07/07/2025 4:34 PM CDT I spoke with patient and relayed results. She voiced understanding. * Result Encounter Note - Jia Boss MA - 06/30/2025 4:33 PM CDT LM for patient to return call to discuss. documented in this encounter Plan of Treatment Not on file documented as of this encounter Visit Diagnoses Not on filedocumented in this encounter Care Teams Wash Oil Pump Operator Helper Relationship Specialty Start Date End Date Yareli Carty MD [id number] [address] PCP - General Family Medicine 06/29/25 documented as of this encounter
--- OUTSIDE RECORDS SUMMARY | 2025-08-28 18:14 | XMS_ITS | Data Portability ---
Author Organization [facility], Telehealth (patients home) Address [address] [place] [address] Care Team Providers Care Manager Support Name Role Phone RONALDO SHELDON Primary Care Provider Assessment Encounter Date Assessment Date Assessment LastModified by Organization Details LastModified Time 10/19/2024 10/19/2024 Met with Nataliia today to follow up on MDD, KARLEY and insomnia. Feeling much better PHQ9=7 mild GAD7= 3vminimal [email or web address] Not available 10/19/2024 19:47:03 02/03/2025 02/03/2025 Labs and Imaging Patient reports not having had lab work done recently but has an upcoming appointment with her primary care provider for wellness check and labs. Visit Summary Nataliia Eastman, , presented for follow-up of depression and karley. She reported worsening mood since her last visit in October, which she attributes to ongoing family issues. She described feeling sad and somewhat hopeless about her family situation, stating she has cut off her sons temporarily after three years of trying to repair relationships. She likened the experience to mourning a . She is currently taking duloxetine (Cymbalta) and bupropion (Wellbutrin) 150 mg daily, which was added at her previous visit. She reports the Wellbutrin has been helpful but feels her depression symptoms have worsened due to family stressors. She also takes a low-dose cholesterol medication. She reports compliance with her psychiatric medications. Nataliia is engaged in therapy at [facility] with a therapist named Taty, attending sessions every 1-2 weeks. She reports this is helpful but feels her situation will never go away. She also expressed concerns about her physical health and oncology follow-up care, noting she has an upcoming appointment with her primary care provider and is considering returning to her previous oncologist in [place]. The plan discussed included increasing bupropion to 300 mg daily while continuing duloxetine at the current dose. Information about Spravato was provided as a potential future option if current medication adjustments are not effective. A follow-up appointment was scheduled for February 17, 2025, at 2:30 PM to assess response to the medication adjustment. Standardized Scales: PHQ9=17 GAD7=9 [email or web address] Not available 02/04/2025 02:01:59 02/22/2025 02/22/2025 Visit Summary A 64-year-old female with a history of depression and anxiety presented for follow-up evaluation. She reports improvement in her symptoms since increasing Wellbutrin from 150 mg to 300 mg two weeks ago, though she has concerns about potential shakiness as a side effect. She is currently taking Cymbalta 120 mg daily and Wellbutrin 300 mg daily. She reports improved sleep, getting 6-7 hours nightly, though still experiences difficulty getting out of bed in the morning. She attends weekly therapy sessions, missing only her most recent appointment due to family obligations. She continues to experience significant distress related to adult sons and grandchildren, which affects her enjoyment of family gatherings. She denies current feelings of worthlessness, hopelessness, or suicidal/homicid al ideation. She reports difficulty with concentration, specifically mentioning inability to read books as she used to. The treatment plan includes continuing current medication regimen of Cymbalta 120 mg daily and Wellbutrin 300 mg daily, with no further increases to Wellbutrin due to concerns about potential increased anxiety or shakiness. She will continue weekly therapy sessions and follow up in one month to reassess response to current medication regimen. Standardized Scales: PHQ9=14 (decreased from previous score of 17) GAD7=9 (unchanged from previous assessment) Not available 02/22/2025 23:41:42 04/06/2025 04/06/2025 Labs and Imaging Visit Summary A 64-year-old female with a history of depression and anxiety presented for follow-up. She reported experiencing jitteriness since her Wellbutrin was increased, as well as ongoing issues with nausea and vomiting when engaging in outdoor activities. She also described a new symptom of tongue discomfort that feels like a burn over her entire tongue, which she believes may be related to her medication. She is currently taking Wellbutrin (recently increased to 300mg), Cymbalta 120mg, and Zyrtec for allergies. She previously tried trazodone 50mg for sleep but found it ineffective at that dose. She reported feeling pretty good mentally but continues to have sleep difficulties, getting between 4-7 hours of sleep recently. The treatment plan includes decreasing Wellbutrin back to 150mg due to jitteriness, continuing Cymbalta at 120mg, and increasing trazodone to 100mg for sleep. She was advised to work on sleep hygiene, including limiting TV at bedtime. She was also encouraged to pursue the GI appointment she is working on scheduling to address her chronic nausea and vomiting. A follow-up appointment was scheduled for April 26, 2025, at 2:00 PM to reassess her response to the medication adjustments. Standardized Scales: PHQ9=14 GAD7=9 [email or web address] Not available 04/06/2025 15:58:12 05/17/2025 05/17/2025 A 65-year-old female with a history of depression and anxiety presented for follow-up. She reports improved mood and sleep, with depression and anxiety scores noted to be better than previous visits. She is currently taking Cymbalta 120 mg and Wellbutrin 300 mg, having decided to remain on the higher dose of Wellbutrin rather than decreasing it as previously discussed. She has discontinued trazodone for sleep and is instead using marijuana approximately one hour before bedtime, which she reports is effective. She has not attended therapy for several weeks but plans to contact her therapist to schedule an appointment. The treatment plan includes continuing current medications (Cymbalta 120 mg and Wellbutrin 300 mg) without changes. The doctor advised against attempting to reduce Wellbutrin during winter months or holiday season, suggesting spring or summer would be more appropriate timing for any medication reductions. The provider provided referrals to two nurse practitioners (Elisa Kowalski at [facility] in [place] and Jannette at [facility] in [place]) as potential primary care providers. A follow-up appointment was scheduled for August 09, 2025. Standardized Scales: PHQ9=4 GAD7=3 [email or web address] Not available 05/17/2025 13:32:02 Plan of Treatment Reminders Order Date Submit Date Provider Last Modified By Organization Details Last Modified Time Details Appointments None recorded. Lab None recorded. Referral None recorded. Procedures None recorded. Surgeries None recorded. Imaging None recorded. Medication Orders Cymbalta 60 mg capsule,del ayed release 2024 025 [facility] #[id number], [address], [place], [place], [id number], 13:35:08 Wellbutrin XL 300 mg 24 hr tablet, extended release 2024 025 [facility] #[id number], [address], [place], [place], [id number], 5 13:35:10 Wellbutrin XL 150 mg 24 hr tablet, extended release 2024 025 [facility] #[id number], [address], [place], [place], [id number], 5 12:41:06 Wellbutrin XL 300 mg 24 hr tablet, extended release 2024 025 [facility] #[id number], [address], [place], [place], [id number], 5 23:45:23 trazodone 50 mg tablet 2024 025 [facility] #[id number], [address], [place], [place], [id number], 5 14:45:08 Patient TargetsNo targets recorded. Patient Instructions Encounter Date Encounter Id Patient Instructions Last Modified By Organization Details Last Modified Time 02/03/2025 [id number] Nataliia reports significant distress related to ongoing family issues with her sons. She states she has temporarily cut them off after three years of trying to repair relationships. She mentioned previous attempts at family counseling were unsuccessful as family members were unwilling to participate. Her daughter has suggested Nataliia move in with her, but Nataliia is hesitant about this arrangement. Continue individual therapy to process grief and develop coping strategies Encouraged maintaining connections with grandchildren through letters Discussed pros and cons of potential living arrangement changes [email or web address] Not available 02/04/2025 01:59:39 04/06/2025 [id number] insomnia: care instructions [email or web address] Not available 04/06/2025 15:59:07 Reason for Referral None Reported. Problems Name Problem SNOMED Code Status Onset Date Resolution Date Notes Provider Name and Address Organization Details Recorded Time Depressive disorder 79519098 Active 2024 Joellen [facility] 14:50:45 Severe recurrent major depression without psychotic features 96905136 Active 2024 Donna Marcos CNM, [facility]- [address], [place], [address] 20:45:03 Insomnia 063179877 Active 2024 Donna Marcos CNM, [facility]- [address], [place], [address], [facility] 20:45:17 Generalized anxiety disorder 22646460 Active 2024 Donna Marcos CNM, [facility]- [address], [place], [address], [facility] 12:21:15 Elevated blood-pressu re reading without diagnosis of hypertension 889115246 Active 2024 Donna Marcos CNM, [facility]- [address], [place], [address], [facility] 20:57:13 Moderate recurrent major depression 13807739 Active 2024 Donna Marcos CNM, [facility]- [address], [place], [address], [facility] 12:21:20 Problem Notes None recorded. Procedures Surgical History Date Name Laterality Status Provider Name and Address Organization Details Recorded Time 09/09/19 13 reconstruction of right breast completed [facility] 04/06/2025 14:49:26 09/09/19 12 excision of breast completed [facility] 04/06/2025 14:49:16 09/09/19 11 Knee arthroscopy/surger y completed [facility] 04/06/2025 14:48:41 09/09/19 10 hysterectomy completed [facility] 04/06/2025 14:47:56 02/19/19 88 ligation of fallopian tube completed [facility] 04/06/2025 14:48:54 08/21/19 82 section completed [facility] 04/06/2025 15:58:26 Imaging Results None recorded. Procedure Notes None recorded. Medical Equipment None Reported. Allergies Allergen ID Allergen Name Allergen Category Reaction Reaction Severity Criticality Documentation Date Start Date Code Code System Note Provider Name and Address Organization Details Recorded Time 1524 Substance with sulfonami de structure and antibacte rial mechanism of action (substanc e) medicatio n Not available Not available Not available 09/28/2024 [id number] ARMOND [facility] 14:53:00 1525 Product containin g penicilli n (product) medicatio n Not available Not available Not available 09/28/2024 [id number] ARMOND [facility] 14:53:08 Medications Name Sig Start Date Stop Date Status Note LastModified by Organization Details LastModified Time atorvastati n 20 mg tablet TAKE 1 TABLET BY MOUTH EVERY DAY AT BEDTIME active Not Available Not Available No t Available clindamycin HCl 300 mg capsule TAKE 1 CAPSULE BY MOUTH EVERY 8 HOURS FOR 7 DAYS 04/06 completed Not Available Not Available Not Available trazodone 50 mg tablet TAKE 1 TABLET BY MOUTH EVERY DAY 04/06 completed Not Available Not Available Not Available tizanidine 4 mg tablet TAKE 1 TABLET BY MOUTH EVERY 6 HOURS FOR 15 DAYS NEEDED 04/06 completed Not Available Not Available Not Available prednisone 20 mg tablet TAKE 1 TABLET BY MOUTH EVERY DAY FOR 5 DAYS active Not Available Not Available No t Available clobetasol 0.05 % topical cream APPLY THIN LAYER TOPICALLY TO THE AFFECTED AREA TWICE DAILY active Not Available Not Available No t Available doxycycline monohydrate 100 mg tablet TAKE 1 TABLET BY MOUTH TWICE DAILY FOR 7 DAYS 04/06 completed Not Available Not Available Not Available tramadol 50 mg tablet TAKE 1 TABLET BY MOUTH EVERY 8 HOURS FOR 5 DAYS NEEDED 04/06 completed Not Available Not Available Not Available pantoprazol e 40 mg tablet,yenny yed release TAKE 1 TABLET BY MOUTH EVERY DAY IN THE MORNING active Not Available Not Available No t Available gabapentin 300 mg capsule TAKE 1 CAPSULE BY MOUTH EVERY 8 HOURS DIRECTED 10/19 completed Not Available Not Available Not Available buspirone 7.5 mg tablet TAKE 1 TABLET BY MOUTH TWICE DAILY NEEDED 10/19 completed Not Available Not Available Not Available diclofenac sodium 75 mg tablet,yenny yed release TAKE 1 TABLET BY MOUTH EVERY 12 HOURS DIRECTED 04/06 completed Not Available Not Available Not Available hydroxyzine HCl 25 mg tablet TAKE 1 TABLET BY MOUTH EVERY DAY NEEDED FOR SLEEP 10/19 completed Not Available Not Available Not Available gabapentin 100 mg capsule TAKE 1 CAPSULE BY MOUTH THREE TIMES DAILY DIRECTED 10/19 completed Not Available Not Available Not Available methylpredn isolone 4 mg tablets in a dose pack FOLLOW PACKAGE DIRECTION S 04/06 completed Not Available Not Available Not Available bupropion HCl XL 150 mg 24 hr tablet, extended release TAKE 1 TABLET BY MOUTH EVERY DAY active Not Available Not Available No t Available Wellbutrin XL 300 mg 24 hr tablet, extended release Take 1 tablet every day by oral route. 2024 active Not Available Not Available Not Avai lable duloxetine 60 mg capsule,del ayed release TAKE 2 CAPSULES BY MOUTH DAILY active Not Available Not Available No t Available calcium 04/06 completed Not Available Not Available Not Available Zyrtec active Not Available Not Availa ble Not Available calcium 600 mg (as carbonate)- vitamin D3 10 mcg (400 unit) tablet TAKE 1 TABLET BY MOUTH TWICE DAILY DIRECTED active Not Available Not Available No t Available Vitals Date Recorded Body height Body mass index (BMI) Body weight Heart rate Systolic And Diastolic Provider Name and Address Organization Details Last Updated DateTime 10/19/2024 154.94 cm 33.8 kg/m2 55971.03 g 106 /min 144/83 mm[Hg] Joellen Hayes [facility] 10/19/2024 16:04:14 Date Recorded Body height Body mass index (BMI) Body weight Heart rate Systolic And Diastolic Provider Name and Address Organization Details Last Updated DateTime 02/03/2025 154.94 cm 34 kg/m2 83521.63 g 105 /min 122/78 mm[Hg] Joellen Hayes [facility] 02/03/2025 15:53:06 Date Recorded Body height Body mass index (BMI) Body weight Heart rate Systolic And Diastolic Provider Name and Address Organization Details Last Updated DateTime 02/22/2025 154.94 cm 33.6 kg/m2 31099.72 g 102 /min 130/77 mm[Hg] Donna Marcos, KELSEY, PMHNP- [address], [place], [address] 23:34:52 Date Recorded Body height Body mass index (BMI) Body weight Heart rate Systolic And Diastolic Provider Name and Address Organization Details Last Updated DateTime 04/06/2025 154.94 cm 33.1 kg/m2 72204.66 g 91 /min 145/78 mm[Hg] Mary Carmen Glover [facility] 14:43:22 Date Recorded Body height Body mass index (BMI) Body weight Heart rate Systolic And Diastolic Provider Name and Address Organization Details Last Updated DateTime 05/17/2025 154.94 cm 33.1 kg/m2 28454.66 g 99 /min 141/84 mm[Hg] Mary Carmen Glover [facility] 12:40:28 Social History Question Answer Notes LastModified by Organizat ion Details LastModified Time Tobacco Smoking Status [facility]28[facility] 14:57:17 What Is Your Level Of Caffeine Consumption? Occasional [email or web address] Information not available 09/28/2024 Which Illicit Or Recreational Drugs Have You Used? MJ- But Actively Trying To Quit [email or web address] Information not available 09/28/2024 How Many Times Per Week Do You Exercise? 1-2 Times Per Week [email or web address] Information not available 09/28/2024 Are There Any Guns Present In Your Home? No [email or web address] Information not available 09/28/2024 Do You Feel Safe In Your Home? Yes [email or web address] Information not available 09/28/2024 Sex: Unknown Functional Status Question Answer Note LastModified by Organizat ion Details LastModified Time Do you use any illicit or recreational drugs? Yes [email or web address] Information not available 09/28/2024 Do you or have you ever used any other forms of tobacco or nicotine? No [email or web address] Information not available 09/28/2024 What is your level of alcohol consumption? Occasional Information not available 09/28/2024 What is your exercise level? Occasional [email or web address] Information not available 09/28/2024 Mental Status Question Answer Note LastModified by Organization D etails LastModified Time Do you feel stressed (tense, restless, nervous, or anxious, or unable to sleep at night)? [id number] [email or web address] Information not available 09/28/2024 Family History Relationship Description Onset Age of this Age Resolved Age Notes LastModified by Organization Details LastModified Time Sister Malignant neoplasm of breast Not available 2024 14:55:38 Brother Malignant neoplasm of prostate [email or web address] Not available 2024 14:55:45 Medical History Condition Response Allergies (Food, seasonal, environmental ) Y Breast Cancer Y Drug/Latex Allergies/Reactions Y Depression Y Breast Problem Y Anxiety Disorder Y Cancer Y High Cholesterol Y Psychiatric/Mental Health Condition Y Psychiatric Illness Y Hypertension Y Gynecological History Statement/Question Response Abnormal Pap N Date of LMP 09/09/2009 STIs/STDs N Date of Last Pap Smear Current Control Method Hysterectom y LMP Approximate Obstetrics History GPAL:G 3 P 3 0 0 3 Type Value Full Term 3 Living 3 Total 3 Past Encounters Encounter ID Performer Location Encounter Start Date Encounter Closed Date Diagnosis/Indication Diagnosis SNOMED-CT Code Diagnosis ICD10 Code Diagnosis IMO Codes Diagnosis Note [id number] Donna Marcos CNM, PMHNP- Main Office [address] [place] [address] 09/28/2024 14:46:33 09/29/2024 09:38:08 Severe recurrent major depression without psychotic features 01736185 F33.2 - Continue Cymbalta 120 mg daily- Add Wellbutrin XL 150 mg daily in the morning- Encourage the developmen t of a nighttime routine to improve sleep- Consider GeneSight testing to determine medication metabolism - Schedule follow-up appointmen t in 3 weeks to assess progress with Wellbutrin Insomnia 070505805 G47.0 0 Discussed cognitive behavioral therapy for insomnia. Discussed making a bedtime ritual. Taking her hydroxyzin e at least an hour before bed. Warm shower prior to bed. Warm decaffeina erik tea. Limit cell phone use or stimulatin g activity activity prior to bed. If in bed longer than 15 to 20 minutes, recommend getting out of bed. Do not get on cell phone, did not turn on TV. Recommend none stimulatin g activities such as reading a book.- Encourage the developmen t of a nighttime routine to improve sleep- Prescribe hydroxyzin e 25-50 mg at bedtime as needed for sleep- Assess sleep improvemen t at the follow-up appointmen t in 3 weeks Generalize d anxiety disorder 77784916 F41.1 Continue Cymbalta 120 mg dailyConsi kyrie referral to a therapist for additional support Elevated blood-pressure reading without diagnosis of hypertension 771289859 R03.0 follow up with PCP [id number] Donna Marcos CNM, PMHNP- Main Office [address] [place] [address] 10/19/2024 16:00:24 10/20/2024 10:22:03 Generalized anxiety disorder 34701684 F41.1 Continue Cymbalta 120 mg dailyplann ing on getting [facility] at [facility] Severe rec urrent major depression without psychotic features 30147450 F33.2 - Continue Cymbalta 120 mg daily- Add Wellbutrin XL 150 mg daily in the morning- Encourage the developmen t of a nighttime routine to improve sleep- Schedule follow-up appointmen t in 4 weeks to assess progress with Wellbutrin Insomnia 086368472 G47.0 0 Discussed cognitive behavioral therapy for insomnia. Discussed making a bedtime ritual. Taking her trazadone at least an hour before bed. Warm shower prior to bed. Warm decaffeina erik tea. Limit cell phone use or stimulatin g activity activity prior to bed. If in bed longer than 15 to 20 minutes, recommend getting out of bed. Do not get on cell phone, did not turn on TV. Recommend none stimulatin g activities such as reading a book.- Encourage the developmen t of a nighttime routine to improve sleep- Assess sleep improvemen t at the follow-up appointmen t in 4weeks [id number] Donna Marcos CNM, [facility] Main Office [address] [place] [address] 02/03/2025 15:49:46 02/05/2025 10:15:23 Severe recurrent major depression without psychotic features 31598013 F33.2 35201321 - Continue Cymbalta 120 mg daily- increase Wellbutrin XL to 300mg daily in the morninginf ormation on spravato given- Encourage the developmen t of a nighttime routine to improve sleep- Schedule follow-up appointmen t in 4 weeks to assess progress with Wellbutrin Generalize d anxiety disorder 50915310 F41.1 [id number] Continue Cymbalta 120 mg dailyplann ing on getting [facility] at [facility] Insomnia 987297938 G47.0 0 [id number] Discussed cognitive behavioral therapy for insomnia. Discussed making a bedtime ritual. Taking her trazadone at least an hour before bed. Warm shower prior to bed. Warm decaffeina erik tea. Limit cell phone use or stimulatin g activity activity prior to bed. If in bed longer than 15 to 20 minutes, recommend getting out of bed. Do not get on cell phone, did not turn on TV. Recommend none stimulatin g activities such as reading a book.- Encourage the developmen t of a nighttime routine to improve sleep- Assess sleep improvemen t at the follow-up appointmen t in 4weeks [id number] Donna Marcos CNM, [facility] Main Office [address] [place] [address] 02/22/2025 16:04:27 02/23/2025 06:26:52 Severe recurrent major depression without psychotic features 31804096 F33.2 [id number] I discussed with Nataliia her current symptoms and response to the increased Wellbutrin dose. Her PHQ-9 score has improved from 17 to 14, indicating some positive response to treatment, though her symptoms remain in the moderate range. She reports feeling better overall but continues to have difficulty with concentrat ion and motivation . We discussed the timeline for full medication effectiven ess, noting that while we often see initial improvemen ts within 1-2 weeks, full benefits may take 6-8 weeks to manifest. Continue Cymbalta 120 mg daily Continue Wellbutrin 300 mg daily (increased from 150 mg two weeks ago) No further increase in Wellbutrin at this time due to concerns about potential increased anxiety or shakiness Continue weekly therapy sessions - Encourage the developmen t of a nighttime routine to improve sleep- Schedule follow-up appointmen t in 4 weeks to assess progress with Wellbutrin Generalize d anxiety disorder 91078449 F41.1 [id number] Nataliia's KARLEY-7 score remains at 9, indicating mild anxiety. We discussed how Wellbutrin can sometimes increase anxiety symptoms due to its stimulatin g properties . She has concerns about shakiness as a potential side effect of the increased Wellbutrin dose, though this has not been significan tly problemati c thus far. Monitor for increased anxiety or shakiness with the higher Wellbutrin doseContin ue utilizing therapy to develop coping strategies for anxietyFol low up in one month to reassess anxiety symptomsCo ntinue Cymbalta 120 mg dailyplann ing on getting [facility] Insomnia 005561964 G47.0 0 [id number] Discussed cognitive behavioral therapy for insomnia. Discussed making a bedtime ritual. Taking her trazadone at least an hour before bed. Warm shower prior to bed. Warm decaffeina erik tea. Limit cell phone use or stimulatin g activity activity prior to bed. If in bed longer than 15 to 20 minutes, recommend getting out of bed. Do not get on cell phone, did not turn on TV. Recommend none stimulatin g activities such as reading a book.- Encourage the developmen t of a nighttime routine to improve sleep- Assess sleep improvemen t at the follow-up appointmen t in 4weeks Relationship problem [id number] Z63.8 [id number] Nataliia continues to experience significan t distress related to estrangeme nt from her adult sons and some grandchild gena. This affects her enjoyment of family gatherings and contribute s to her depressive symptoms. We discussed the importance of focusing on relationsh ips that are supportive while working through grief related to the estrangeme nt.Continu e addressing these issues in therapyFoc us on maintainin g positive connection s with family members with whom she has good relationsh ipsWork on developing coping strategies for difficult family events [id number] Donna Marcos CNM, [facility] Main Office [address] [place] [address] 04/06/2025 14:35:01 04/07/2025 06:31:52 Moderate recurrent major depression [id number] F33.1 [id number] I discussed with the patient her current symptoms and medication response. She reports feeling pretty good mentally but is experienci ng jitterines s since the Wellbutrin increase. Her depression scores remain identical to previous visits, suggesting the increased dose has not provided additional benefit. She denies feelings of worthlessn ess, hopelessne ss, or helplessne ss, and denies thoughts of harming herself or others. Decrease Wellbutrin from 300mg back to 150mg due to jitterines s side effects Continue Cymbalta at current dose of 120mg Discussed possibilit y of eventually transition ing from Cymbalta to another medication like Pristiq in the future if needed, but agreed to make one medication change at a time Follow up in 3 weeks to assess response to medication adjustment Generalize d anxiety disorder [id number] F41.1 [id number] Nataliia's KARLEY-7 score remains at 9, indicating mild anxiety. We discussed how Wellbutrin can sometimes increase anxiety symptoms due to its stimulatin g properties . She has concerns about shakiness as a potential side effect of the increased Wellbutrin dose, though this has not been significan tly problemati c thus far. Monitor for increased anxiety or shakiness with the higher Wellbutrin doseContin ue utilizing therapy to develop coping strategies for anxietyFol low up in one month to reassess anxiety symptomsCo ntinue Cymbalta 120 mg dailyplann ing on getting in at [facility] for therapy Insomnia [id number] G47.0 0 [id number] Patient continues to report difficulty with sleep, getting between 4-7 hours per night. She has difficulty falling asleep due to racing thoughts when lying down. She previously tried trazodone 50mg without benefit.In crease trazodone from 50mg to 100mg at bedtimeAdv ised on sleep hygiene practices, including limiting TV stimulatio n at bedtimeEnc ouraged consistent bedtime routineRea ssess sleep at follow-up appointmen t [id number] Donna Marcos CNM, [facility]- Main Office [address] [place] [address] 05/17/2025 12:35:34 05/18/2025 06:31:10 Generalized anxiety disorder [id number] F41.1 [id number] Nataliia's KARLEY-7 score remains at 9, indicating mild anxiety. We discussed how Wellbutrin can sometimes increase anxiety symptoms due to its stimulatin g properties . Monitor for increased anxiety or shakiness with the higher Wellbutrin doseContin ue utilizing therapy to develop coping strategies for anxietyFol low up in one month to reassess anxiety symptomsCo ntinue Cymbalta 120 mg dailyplann ing on getting in at [facility] for therapy Insomnia [id number] G47.0 0 [id number] Patient reports improved sleep with use of marijuana before bedtime. She has discontinu ed prescribed trazodone 100 mg. Sleep onset is now around 12:30-1:00 AM, which represents an improvemen t from previous pattern.Miguel negron will continue current sleep management approachNo changes to sleep medication at this timeMonito r sleep patterns at follow-up appointmen t Moderate r ecurrent major depression [id number] F33.1 [id number] Patient reports improved mood and functionin g with current medication regimen. Depression and anxiety scores were noted to be better than previous visits. She continues to experience some guilt related to family relationsh ips but denies suicidal ideation or other concerning symptoms. I discussed the importance of maintainin g medication during winter months and holidays when symptoms can typically worsen.Con tinue Cymbalta 120 mg dailyConti nue Wellbutrin 300 mg dailyConsi kyrie potential dose reduction of Wellbutrin in spring/ rather than winter monthsEnco uraged resumption of therapy sessionsFo [facility] (August 09, 2025) Health Concerns Section Related Observation LastModified by Organization Detai ls LastModified Time None Recorded Concern Status LastModified by Organization Details LastModified Time None Recorded Advance Directives Directive None Recorded Payers Insurance Date Sequence Insurance Name Policy Number Policy Bhatti Covered Member ID Bhatti Member ID Guarantor Name 08/09/2025 1 [employer] (MEDICARE REPLACEMENT/ ADVANTAGE - PPO) [id number] Nataliia Eastman [id number] Nataliia Eastman Notes Date Note Type Note Provider Name and Address Organization Details Recorded Time 02/03/2025 text/html History of present illness Nataliia Eastman presents today for a follow-up visit. She reports feeling sad and states her mood could be better. She attributes her current emotional state to family issues, describing it as situational. She has been attending therapy at [facility], seeing a therapist named Taty either weekly or every other week. She mentions that she was doing better at her last visit in October but has since experienced a decline in her mood due to family problems. Nataliia works part-time, reporting that she worked a four-hour shift (10 AM to 2 PM) on the day of the appointment. She expresses concern about her physical health and feels she needs a body check or physical examination. She has an upcoming appointment with her primary care provider in a few days for wellness and lab work. She reports feeling nauseous today, though she doesn't believe she's sick. Regarding her family situation, Nataliia reports significant distress about her relationship with her children. She states she has cut them off for a while because she feels she has been trying to fix their relationship for three years without success. She describes the situation as mourning a and says it's senseless. Her daughter Adriana has suggested Nataliia move in with her, but Nataliia is hesitant about this arrangement. Nataliia mentions she has seven grandchildren besides Adriana's two daughters, and she is writing notes to each of them to ensure they know they can contact her. Nataliia reports poor sleep, stating she rarely feels like she's gotten a good night's sleep. She typically goes to bed late and feels her sleep schedule may be turned around, with her staying up at night and wanting to sleep in the morning. Past Medical History Illness, Injuries, Operations, and Treatment: History of breast cancer diagnosed in 2011; high cholesterol for which she takes medication (low dose) Previous Psychiatric or Mental Health Treatment: Currently attending therapy at [facility] with therapist named Taty; has been on antidepressants for approximately 20+ years Previous Psychiatric or Mental Health Hospitalization: Not provided Medication History 1. Duloxetine (Cymbalta): Dosage: Duration: Currently taking, has been on it for an extended period Effectiveness: Patient states I can't imagine what it'd be like without it Side Effects: None reported 2. Bupropion (Wellbutrin): Dosage: 150 mg daily Duration: Added at previous visit on October 19, 2024 Effectiveness: Patient reports it is helpful Side Effects: None reported 3. Cholesterol medication: Dosage: Low dose Duration: Effectiveness: Side Effects: None reported 4. Previous antidepressants: Venlafaxine (Effexor) - timing and details unknown Other antidepressants - patient mentions being on antidepressants for 20 some years Donna Marcos, KESLEY, PMHNP-BC [address], [place], [address], [facility] 02/04/2025 02:02:59 02/22/2025 text/html History of present illness Nataliia Eastman is a 64-year-old female presenting for follow-up of depression and anxiety management. She reports feeling better since increasing her Wellbutrin dose, though she has concerns about potential shakiness as a side effect. She describes her mood as up and down over the past week, stating when things get settled or something, then something else happens. She reports improved sleep patterns, now getting approximately 6-7 hours of sleep per night, though she still experiences difficulty getting out of bed in the morning, describing it as I wake up sometimes and when I get out of bed, it's like I freeze, and I just can't. I have to lay there for quite a while. She believes this symptom has improved since starting the higher dose of Wellbutrin. Nataliia reports significant family stressors related to estrangement from her adult sons. She explains that she previously had close relationships with all her children and grandchildren, but now has limited contact with her sons, which causes her distress. She states, we were always together. I mean, all of us. We took trips. We were a family. She believes the estrangement may be related to her sons' wives' attitudes toward her daughter Adriana. Past Medical History Illness, Injuries, Operations, and Treatment: Hysterectomy (not for cancer reasons) History requiring oncology follow-up (specific cancer type not specified) Previous Psychiatric or Mental Health Treatment: Currently attending weekly therapy sessions Previous Psychiatric or Mental Health Hospitalization: Not provided Medication History Cymbalta 120 mg daily - current Wellbutrin 150 mg daily - previous dose, recently increased to 300 mg approximately two weeks ago Donna Marcos CNM, PMHNP- [address], [place], [address], [place] [facility] 02/22/2025 23:45:59 04/06/2025 text/html History of present illness Nataliia Eastman is a 64-year-old female presenting for follow-up psychiatric care. She reports experiencing jitteriness since her Wellbutrin was increased. She also describes a chronic issue of nausea and vomiting that occurs when she goes outside and engages in physical activity, stating every time I go out, I throw up. This symptom has persisted for approximately 8-10 years, beginning after she had ridden horses with a friend on a hot day, then returned home and started watering plants indoors when she suddenly became ill. The vomiting episodes continue to occur when she engages in outdoor activities, such as mowing the lawn or watering plants. She reports that her primary care physician is aware of this issue but has not determined a cause, and she is working on getting a GI appointment. Additionally, she reports a new symptom of tongue discomfort that feels like a burn over her entire tongue. She describes it as feeling like I burned my whole tongue similar to a coffee burn, and notes that her tongue appears white. This has been ongoing for several weeks and is accompanied by excessive thirst. She believes this symptom may have started after beginning her new medication (increased Wellbutrin). Regarding her mental health, she reports feeling pretty good mentally but is troubled by the physical symptoms. She denies feelings of worthlessness, hopelessness, or helplessness. She also denies thoughts of harming herself or others, and denies hallucinations. Her sleep continues to be problematic, with variable sleep duration ranging from 4-10 hours per night, though recently it has been between 4-7 hours. She reports difficulty falling asleep due to racing thoughts when she lies down. She mentions having had dreams about her that were unpleasant, though these have decreased recently. She typically doesn't go to bed until late and reports that nighttime is not a good time for her. She is attending therapy every two weeks and describes it as good. She also mentions taking Zyrtec daily for allergies but ran out a couple of days ago. Past Medical History Illness, Injuries, Operations, and Treatment: Not provided Previous Psychiatric or Mental Health Treatment: Therapy every two weeks. Previous Psychiatric or Mental Health Hospitalization: Not provided Medication History 1. Wellbutrin: Dosage: Recently increased to 300mg, previously on 150mg Effectiveness: Patient reports feeling pretty good mentally Side Effects: Jitteriness, possible contribution to tongue discomfort, sometimes affects appetite 2. Cymbalta: Dosage: 120mg Duration: Long-term use Effectiveness: Patient continues on this medication 3. Trazodone: Dosage: Previously prescribed at 50mg for sleep Effectiveness: Patient reports it provided no relief at this dose 4. Hydroxyzine: Was previously prescribed for sleep 5. Zyrtec: Dosage: Once daily for allergies Note: Patient ran out a couple days ago Donna Marcos, KELSEY, PMHNP- [address], [place], [address], [facility] 04/06/2025 16:00:27 05/17/2025 text/html History of present illness Nataliia Eastman is a 65-year-old female presenting for a follow-up visit. She recently returned from a vacation trip with three friends, which she reports went well and she had a good time. She reports her mood has been good and she is feeling better overall. She mentions her sleep has been improving, noting that she can now fall asleep around 12:30 or 1:00 AM, which is an improvement from her previous pattern of staying awake way into the morning hours. She reports that she did not decrease her Wellbutrin as previously discussed, stating that she felt better shortly after her last appointment and decided to remain on the higher dose. She is currently not taking trazodone for sleep as prescribed, instead using marijuana about an hour before bed to help with sleep. She reports this approach is working for her sleep issues. She mentions she hasn't attended therapy for several weeks, estimating it may have been a month since her last session. She plans to contact her therapist and schedule an appointment later in the week. She reports experiencing some guilt related to her relationship with her children and grandchildren, stating Just can't get over it and noting that she hasn't heard a thing from any of them. She denies any thoughts of harming herself or others, and denies experiencing hallucinations. She reports her sleep was disrupted during her recent vacation but attributes this to being in a hotel environment. She expresses interest in potentially reducing her Wellbutrin dosage in the future but understands that winter and holiday seasons would not be an appropriate time to attempt medication reduction. Past Medical History Illness, Injuries, Operations, and Treatment: Not provided Previous Psychiatric or Mental Health Treatment: She has been in therapy but has not attended for several weeks. Previous Psychiatric or Mental Health Hospitalization: Not provided Medication History 1. Cymbalta 120 mg - Current medication for depression/anxiety 2. Wellbutrin 300 mg - Current medication for depression, patient decided to stay at higher dose rather than decreasing it 3. Trazodone 100 mg - Previously prescribed for sleep, patient is currently not taking this medication 4. Marijuana - Patient reports using this approximately one hour before bed to help with sleep Donna Marcos CNM, PMHNP- [address], [place], [address], [facility] 05/17/2025 13:35:38 OBGyn Episode Ob Episode Information Episode Created Date Number of Fetuses Patient Bloodtype Patient rh Status Prepregnancy Weight lbs Domestic Partner Domestic Partner Phone Father Name Independent Producer Status 04/06/20 25 1 CLOSED Fetus Data First Name Last Name Admitted to NICU Weight (g) Sex Living Outcome Pediatric Complications Fetus ID Race Codes Race Delivery Type M Full Term 357 Rachid Calculation Initial Rachid Date Initial Exam Date Initial Exam Provider Initial Ultrasound Date Last Menstrual Period Date Ultra Sound Weeks Gestation 0 Eighteen To Twenty Week Rachid Update Ultra Sound Date Fundal Height At Umbil Quickening Date Ultra Sound Latest Weeks Gestation Final Rachid Confirmed By Final Rachid Confirmed Date Final Rachid Date Ultra Sound Latest Days Gestation 0 0 Menstrual History Last Menstrual Date Menses Monthly On Bcp Conception Prior Menses Frequency Hcg Plus Date Menarche Onset Age Delivery Information Delivery Date Delivery Type Labor Anesthesia Weeks Gestation Incision Type Labor Labor Length Hrs Delivered By Post Complications Tubal Sterilization Discharge Date Comments 2 c sectio n Discharge Information Feeding Method Contraceptive Method Maternal HG B and HCT Levels Ob Episode Information Episode Created Date Number of Fetuses Patient Bloodtype Patient rh Status Prepregnancy Weight lbs Domestic Partner Domestic Partner Phone Father Name Independent Producer Status 04/06/20 25 1 CLOSED Fetus Data First Name Last Name Admitted to NICU Weight (g) Sex Living Outcome Pediatric Complications Fetus ID Race Codes Race Delivery Type M Full Term 356 Rachid Calculation Initial Rachid Date Initial Exam Date Initial Exam Provider Initial Ultrasound Date Last Menstrual Period Date Ultra Sound Weeks Gestation 0 Eighteen To Twenty Week Rachid Update Ultra Sound Date Fundal Height At Umbil Quickening Date Ultra Sound Latest Weeks Gestation Final Rachid Confirmed By Final Rachid Confirmed Date Final Rachid Date Ultra Sound Latest Days Gestation 0 0 Menstrual History Last Menstrual Date Menses Monthly On Bcp Conception Prior Menses Frequency Hcg Plus Date Menarche Onset Age Delivery Information Delivery Date Delivery Type Labor Anesthesia Weeks Gestation Incision Type Labor Labor Length Hrs Delivered By Post Complications Tubal Sterilization Discharge Date Comments 0 vaginal delivery Discharge Information Feeding Method Contraceptive Method Maternal HG B and HCT Levels Ob Episode Information Episode Created Date Number of Fetuses Patient Bloodtype Patient rh Status Prepregnancy Weight lbs Domestic Partner Domestic Partner Phone Father Name Independent Producer Status 04/06/20 25 1 CLOSED Fetus Data First Name Last Name Admitted to NICU Weight (g) Sex Living Outcome Pediatric Complications Fetus ID Race Codes Race Delivery Type F Full Term 358 Rachid Calculation Initial Rachid Date Initial Exam Date Initial Exam Provider Initial Ultrasound Date Last Menstrual Period Date Ultra Sound Weeks Gestation 0 Eighteen To Twenty Week Rachid Update Ultra Sound Date Fundal Height At Umbil Quickening Date Ultra Sound Latest Weeks Gestation Final Rachid Confirmed By Final Rachid Confirmed Date Final Rachid Date Ultra Sound Latest Days Gestation 0 0 Menstrual History Last Menstrual Date Menses Monthly On Bcp Conception Prior Menses Frequency Hcg Plus Date Menarche Onset Age Delivery Information Delivery Date Delivery Type Labor Anesthesia Weeks Gestation Incision Type Labor Labor Length Hrs Delivered By Post Complications Tubal Sterilization Discharge Date Comments 8 vaginal delivery Discharge Information Feeding Method Contraceptive Method Maternal HG B and HCT Levels
--- OUTSIDE RECORDS SUMMARY | 2025-08-28 18:14 | XMS_ITS | CCD ---
Author Name Interface, [id number] [facility] Address [facility] [address], [place] [address] [facility] [place] [address] Care Team Providers Care Rehabilitation Engineer Name Role Phone Glen MORRIS, Anthony Trejo Unavailable Unavailable Reason for Visit Social History Date Name Value 12/30/2015 Sex Female
--- OUTSIDE RECORDS SUMMARY | 2025-08-28 18:17 | XMS_ITS | CCD ---
Author Name Interface, [id number] [facility] Address [facility] [address], [place] [address] [facility] [place] [address] Care Team Providers Care Hospital Wellness Coordinator Name Role Phone Glen MORRIS, Anthony Trejo Unavailable Unavailable Reason for Visit Social History Date Name Value 12/30/2015 Sex Female
--- OUTSIDE RECORDS SUMMARY | 2025-08-28 18:17 | XMS_ITS | CCD ---
Author Name Interface, [id number] [facility] Address [facility] [address], [place] [address] [facility] [place] [address] Care Team Providers Care Photography Sales Associate Name Role Phone Glen MORRIS, Anthony Trejo Unavailable Unavailable Reason for Visit Social History Date Name Value 12/30/2015 Sex Female
--- OUTSIDE RECORDS SUMMARY | 2025-08-28 18:17 | XMS_ITS | Clinical Summary ---
Author Organization [facility] Address [address], [facility] [address] [place] [address] Phone Care Team Providers Care General Adjuster Name Role Phone Anibal Pretty MD Primary Care Provider [phone] Allergies Active Allergy Reactions Criticality Noted Date Comments Penicillins Swelling 09/17/2022 Sulfa Antibiotics Hives 09/17/2022 Medications DULoxetine (CYMBALTA) [address] Particles TAKE 2 CAPSULES BY MOUTH DAILY 07/02/2022 Active sertraline (ZOLOFT) 50 MG Tablet TAKE 1 TABLET BY MOUTH EVERY DAY DIRECTED 08/24/2022 Active busPIRone HCl 7.5 MG Tablet TAKE 1 TABLET BY MOUTH TWICE DAILY NEEDED 08/24/2022 Active pantoprazole (PROTONIX) 40 MG Tablet Delayed Response Take 40 mg by mouth daily. 07/02/2022 Active Cholecalciferol (Vitamin D) 125 MCG (5000 UT) Capsule Take by mouth. Active Multiple Vitamin (MULTI-VITAMIN PO) Take by mouth. Active Cetirizine HCl (ZYRTEC PO) Take by mouth. Active atorvastatin (LIPITOR) 20 MG Tablet Take 20 mg by mouth nightly. Active buPROPion (WELLBUTRIN) 150 MG XL tablet Take 150 mg by mouth daily. 10/27/2024 Active Calcium Carb-Cholecalci ferol 600-10 MG-MCG Tablet Take 1 Tablet by mouth 2 times daily. Active GABAPENTIN PO Take by mouth as needed. Active Active Problems Problem Noted Date Diagnosed Date Elevated blood pressure reading 10/29/2024 Breast cancer Immunizations Immunization Administration Dates Next Due Hepatitis B Vaccine,unspecified Formulation 09/1993,06/09/1993,05/09/1993 Influenza Vaccine, MDCK,quad rivalent, pres free 07/04/2022 Influenza, Seasonal, Injectable, Undefined 07/24 TD VACCINE 09/18/2014 TDAP Vaccine 07/27/2022 Family History Medical History Relation Name Comments Prostate Cancer Brother Hypertension Father Breast Cancer Sister Relation Name Status Comments Brother Father Sister Social History Tobacco Use Types Packs/Day Years Used Date Smoking Tobacco: Never Smokeless Tobacco: Never Tobacco Cessation:Counseling Given: Not Answered Alcohol Use Standard Drinks/Week Comments Yes 2 (1 standard drink = 0.6 oz pur e alcohol) Comments Unknown Sex and Gender Information Value Date Recorded Sex Assigned at Not on file Legal Sex Female 11:23 AM [employer] Gender Identity Not on file Sexual Orientation Not on file Last Filed Vital Signs Vital Sign Reading Time Taken Comments Blood Pressure 142/84 10/29/2024 2:26 PM [employer] Pulse 108 10/29/2024 2:26 PM [employer] Temperature 36.3 C (97.3 F) 10/29/2024 2:26 PM [employer] Respiratory Rate 18 10/29/2024 2:26 PM [employer] Oxygen Saturation 96% 10/29/2024 2:26 PM [employer] Inhaled Oxygen Concentration - - Weight 80.9 kg (178 lb 6.4 oz) 10/29/2024 2:26 P M [employer] Height 152.4 cm (5') 10/29/2024 2:26 PM [employer] Body Mass Index 34.84 10/29/2024 2:26 PM [employer] Plan of Treatment Upcoming Encounters Date Type Department Care Team (Late st Contact Info) Description 10/28/2025 2:15 PM [employer] Office Visit [facility] [address] [address] Kiran Marcum MD [address] [place], [place] [id number] Health Maintenance Due Date Last Done Comments DEXA Bone Density 1960 Hepatitis C Virus (HCV) Screening 1960 Zoster Immunization (1 of 2) 1977 Cologuard 2003 Colonoscopy 2003 Colorectal Cancer Screening 2003 Immunochemical Fecal Occult Blood 2003 Pneumococcal Immunization (50+ years) (2 of 2 - PCV) 08/14/2023 08/14/2022 Medicare Initial AWV [id number] 09/09/2024 Influenza Immunization (#1) 05/10/202508/09, 07/04/2022, 06/09/2022, Additional history exists SARS-COV-2 Immunization ( - season) 2025 08/18/2023, 02/23/2021, 01/26/2021 Mammogram Unilateral 02/24/2026 02/24/2025, 02/24/2025, 01/23/2024, Additional history exists Td Immunization Every 10 Years (Adults With 1 Tdap) 07/27/2032 07/27/2022, 09/18/2014 Respiratory Syncytial Virus (RSV) Immunization (Adult) (1 - 1-dose 75+ series) 2033 Hepatitis B Immunization Completed 994, 06/09/1993, 05/09/1993 DTaP/Tdap/Td Immunization Discontinued 07/27/2022, 06/2015 Pneumococcal Immunization Combined Discontinued 08/14/2022 Human Papillomavirus (HPV) Immunization (No Doses Required) Completed Meningococcal Immunization (ACWY) Aged Out No longer eligible based on patient's age to complete this topic Rotavirus Immunization Aged Out No lo nger eligible based on patient's age to complete this topic Insurance MEDICARE C [employer] Care Teams General Adjuster Relationship Specialty Start Date End Date Aniabl Pretty MD [address] [place] [address] PCP - General Family Medicine 08/15/22
--- NOTE | 2025-08-28 18:19 | ED.FEMALEGU ---
HPI - Female Genitourinary General Chief complaint: Urogenital-Female Stated complaint: UTI Time Seen by Provider: 08/28/25 18:24 Source: patient, RN notes reviewed and old records reviewed Mode of arrival: ambulatory Limitations: no limitations History of Present Illness HPI Narrative: 65-year-old female presents to the [facility] with concerns for UTI. Patient reports 2 day history of body aches, pain with urination, frequency, headache, symptoms got worse today. Reports she has taken Tylenol. Denies abdominal pain, CVA tenderness, nausea, vomiting, denies fever Onset (ago): day(s) (2-3) Related Data Home Medications ?Medication ?Instructions ?Recorded ?Confirmed ?Last Taken ?Type atorvastatin 10 mg tablet 10 mg PO DAILY 07/27/22 07/07/24 Unknown History duloxetine 60 mg capsule,delayed 60 mg PO BID 07/27/22 07/07/24 Unknown History release pantoprazole 40 mg tablet,delayed 40 mg PO DAILY 07/27/22 07/07/24 Unknown History release calcium 600 mg (as tablet PO 08/28/25 Unknown History carbonate)-vitamin D3 10 mcg (400 unit) tablet Allergies Allergy/AdvReac Type Severity Reaction Status Date / Time Penicillins Allergy Mild Hives Verified 08/28/25 18:19 Sulfa (Sulfonamide Allergy Mild Hives Verified 08/28/25 18:19 Antibiotics) Review of Systems Review of Systems: All systems reviewed & are unremarkable except as noted in HPI and below Constitutional: Constitutional: Reports as per HPI and Reports body ache(s) Cardiovascular: Cardiovascular: Reports no additional cardiovascular complaints, Denies chest pain and Denies dyspnea Respiratory: Respiratory: Reports no additional respiratory complaints, Denies chest congestion, Denies cough and Denies dyspnea Gastrointestinal: Gastrointestinal: Reports no additional gastrointestinal complaints Genitourinary: Genitourinary: Reports as per HPI Musculoskeletal: Musculoskeletal: Reports no additional musculoskeletal complaints Integumentary/Breasts: Skin/Breast: Reports system reviewed and no additional complaints, except as docu PMFSH Comments At the time of my signature, I reviewed and agree with the nursing past medical, surgical, social, and family history. There is no relevant family history pertinent to the patient complaint. Exam Const: General: cooperative, healthy appearing, comfortable, no acute distress, well developed, alert and well nourished Nutritional Appearance: well nourished Orientation/consciousness: patient oriented x3 Limitations: no limitations HENMT: Head: normal to inspection Mouth: Yes Normal oral and palatal mucosa present, Yes lip normal, Yes tongue normal and Yes moist mucous membranes Eyes: General: appearance normal, both eyes and all related structures Alignment and Position: alignment normal Neck: Neck: normal visual inspection, full ROM, no lymphadenopathy and no meningeal signs Chest: Chest palpation & inspection: normal inspection of the chest Resp: Effort & Inspection: normal respiratory effort and able to speak in complete sentences Auscultation: clear to auscultation bilaterally, no crackles, no rales, no rhonchi and no wheezes Cardio: Rate: regular rate GI: GI Palp: No abdominal tenderness : General: Yes no CVA tenderness Skin: General skin exam: normal color and no rashes or lesions noted Neuro: General: patient oriented x3, gait normal, moves all extremities and no meningeal signs Cognition (Neuro): normal cognition Speech: normal speech Gait exam (Neuro): Normal gait present Extrem: General: normal to inspection, full ROM, capillary refill normal and normal gait Psych: Appearance: grossly normal and well kempt Mental Status: mental status grossly normal Speech and movement: Normal speech and movement present and Clear speech present Affect: normal affect Attitude: cooperative Course Course Level of Care: Express Care Visit Vital Signs Vital signs: Vital Signs Temperature 97.6 F 08/28/25 18:20 Pulse Rate 95 08/28/25 18:20 Respiratory Rate 20 08/28/25 18:20 Blood Pressure 127/76 08/28/25 18:20 Pulse Oximetry 98 08/28/25 18:20 Oxygen Delivery Room Air 08/28/25 18:20 Temperature 97.6 F 08/28/25 18:20 Pulse Rate 95 08/28/25 18:20 Respiratory Rate 20 08/28/25 18:20 Blood Pressure 127/76 08/28/25 18:20 Pulse Oximetry 98 08/28/25 18:20 Oxygen Delivery Room Air 08/28/25 18:20 reviewed MDM MDM Narrative Medical decision making narrative: patient sitting in exam room. Patient is nontoxic, vitals stable. Patient presents with concerns for a UTI patient positive leukocytes, positive blood. Will cover with antibiotic, sent for culture. Patient is appropriate for outpatient treatment with close follow-up Discharge instructions reviewed with patient, as well as provided in writing per nursing staff. The instructions also include specific and strict return/GO TO THE ER as well as f/u information. All questions have been answered, and the patient deny any further questions with discharge and discharge plan. Some parts of this dictation were generated by voice recognition software and may contain typographical and/or grammatical inaccuracies. Differential Diagnosis Differential Diagnosis: Differential diagnostic considerations for female urogenital? issues include urinary tract infection, bacterial vaginosis, cervicitis, ovarian cyst, vaginitis, STI exposure, ovarian torsion, ectopic , cyst of Bartholin?s gland, cystitis, dysmenorrhea.?? Lab Data Labs: Lab Results 08/28/25 Range/Units 18:29 POC Urine Color Yellow POC Urine Clarity Cloudy POC Urine pH 7.0 POC Ur Specif [place] 1.030 POC Urine Protein 2+ (Negative) POC Ur Glucose (UA) Negative (Negative) POC Urine Ketones Negative (Negative) POC Urine Blood 2+ (Negative) POC Urine Nitrite Negative (Negative) POC Urine Bilirubin Negative (Negative) POC Urine Urobilinogen 0.2 POC U Leukocyte Esteras 2+ (Negative) reviewed Discharge Plan Discharge Clinical Impression: Urinary tract infection Qualifiers: Urinary tract infection type: acute cystitis Hematuria presence: with hematuria Qualified Code(s): N30.01 - Acute cystitis with hematuria Patient Disposition: Home Condition: Stable Instructions: Antibiotic Form, Urinary Tract Infection in Women (DC), Urinary Tract Infection in Older Adults (ED) Additional Instructions: Increased water intake Take Tylenol as needed for pain Take antibiotic as prescribed Today your urine dip showed a probability of a UTI. You have been prescribed an antibiotic. Your urine will be sent to our lab for a culture. If at that time a bacteria grows that is not covered by the antibiotic prescribed you will be notified. Follow-up with primary care For new or worsening symptoms go directly to the emergency room Patient Language: Panamanian Prescriptions: New ciprofloxacin HCl 500 mg tablet 500 mg PO Q12H 3 Days Qty: 6 0RF No Action calcium carbonate-vitamin D3 600 mg-10 mcg (400 unit) tablet PO atorvastatin 10 mg tablet 10 mg PO DAILY pantoprazole 40 mg tablet,delayed release (DR/EC) 40 mg PO DAILY duloxetine 60 mg capsule,delayed release(DR/EC) 60 mg PO BID Follow-up/Referrals: UNKNOWN,DOCTOR [Primary Care Provider] Time of Disposition: :36
[2025-08-28 18:20] VITALS: BP 127/76; PULSE 95; RESP 20; TEMP 36.4; O2SAT 98
[2025-08-28 18:32] LABS: EDUAAPPEAR Cloudy; EDUABILI Negative (Negative); EDUABLOOD 2+ (Negative); EDUACOLOR1 Yellow; EDUAGLUCOSE Negative (Negative); EDUAKETONE Negative (Negative); EDUALEUKO 2+ (Negative); EDUANITRATE Negative (Negative); EDUAPH 7.0; EDUAPROTEIN 2+ (Negative); EDUASPGRAVITY 1.030; EDUAUROBILI 0.2
== END 2025-08-28 18:39 | disposition home or self-care (01) ==
PROVIDERS: Emergency Provider Nurse Practitioner
DX: N30.01 Acute cystitis with hematuria (principal); E78.00 Pure hypercholesterolemia, unspecified; K21.9 Gastro-esophageal reflux disease without esophagitis; Z85.3 Personal history of malignant neoplasm of breast
CPT/HCPCS: 81003; 87086; 99213; G0463